=== PATIENT | male | born 1960 | race African-American/Black ===

== ENCOUNTER 2020-04-11 18:40 | Emergency (ER) | payer OTHER, SELFPAY ==
--- NOTE | ~2020-04-11 | CT_ITS ---
EXAMINATION: CTA LE RT EXAM DATE: 04/11/2020 21:12 INDICATION: Severe leg pain, well perfused TECHNIQUE: Spiral CTA was performed of the right lower extremity Axial, coronal and sagittal images were reviewed. The dose-length product (DLP) for this examination was 395.22 mGy-cm. Maximum intens ity projection 3-D reconstructions of the arteries were created by the technologist on dedicated wor kstation. The exposure was tailored according to patient size (auto mA exposure control), and itera tive reconstruction (ASIR) was used as additional dose reduction technique. There is no prior study for comparison. FINDINGS: Images of the common femoral artery at the inguinal canal demonstrate mild to moderate scat tered arteriosclerotic disease. There is mild popliteal arterial sclerotic disease. There is 3 vessel runoff to the ankle. No evidence of right lower extremity venous thrombosis. No right knee joint eff usion. There is nonspecific subcutaneous swelling of the calf, ankle and foot. No abscess. There is m ottled appearance to the right tarsal and metatarsal bases without discrete erosions. Could be disuse osteopenia, is patient Global? No inguinal lymphadenopathy. IMPRESSION: 1. Right calf, ankle and foot subcutaneous edema. 2. Scattered arterial sclerosis but 3 vessel runoff. No evidence of venous thrombus. 3. Mottled tarsal bone density. Disuse osteopenia? Reviewed, dictated and finalized at location A. ENGINEER IMPRESSION: 1. Right calf, ankle and foot subcutaneous edema. 2. Scattered arterial sclerosis but 3 vessel runoff. No evidence of venous thr ombus. 3. Mottled tarsal bone density. Disuse osteopenia?
--- NOTE | ~2020-04-11 | XR_ITS ---
EXAMINATION: XR chest 1V portable EXAM DATE: 04/11/2020 21:32 INDICATION: Transient alteration of awareness. History of hypertension. TECHNIQUE: Portable AP frontal chest x-ray was obtained. There is no prior study for comparison. FINDINGS: The lungs are clear. There are no pleural effusions. Cardiac silhouette is prominent but magnified on this AP technique. There is no pneumothorax suspected. The bones and soft tissues are unremarkable. There is aortic arteriosclerosis. IMPRESSION: No acute cardiopulmonary findings. Reviewed, dictated and finalized at location A. NSED MASSAGE PRACTITIONER
--- NOTE | ~2020-04-11 | CT_ITS ---
EXAMINATION: CT abdomen pelvis w con EXAM DATE: 04/11/2020 21:11 INDICATION: Abdominal pain, g tube pain. TECHNIQUE: Spiral CT of the abdomen and pelvis was performed following intravenous injection of 100 m L Omnipaque 350. Axial, coronal and sagittal images were reviewed. The dose-length product (DLP) fo r this examination was 313.28 mGy-cm. The exposure was tailored according to patient size (auto mA e xposure control), and iterative reconstruction (ASIR) was used as additional dose reduction technique . There is no prior study for comparison. FINDINGS: The liver, spleen, adrenal glands and pancreas are unremarkable. Gallbladder is unremarkab le. No biliary obstruction. Portal and splenic veins are patent. Kidneys enhance symmetrically. T here is no hydronephrosis. The prostate is unremarkable. The bladder is unremarkable. There is no retroperitoneal or pelvic lymphadenopathy. There is moderate aortic arteriosclerotic disease. Sign ificant bilateral iliac arterial sclerosis, difficult to ascertain the amount of stenosis but there i s likely at least moderate narrowing. The appendix is normal. Gastrostomy tube is in place. There is expected amount of colonic stool. No free intraperitoneal gas. The heart is normal in size. There are no pericardial or pleural effu sions. The lung bases are unremarkable. The bones are unremarkable. IMPRESSION: 1. No acute intra-abdominal findings. 2. Significant bilateral common iliac arterial sclerosis, likely at least moderate stenosis. Reviewed, dictated and finalized at location A. CARE SPECIALIST IMPRESSION: 1. No acute intra-abdominal findings. 2. Significant bilateral common iliac arterial sclerosis, likely at least mode rate stenosis.
--- NOTE | ~2020-04-11 | CT_ITS ---
EXAMINATION: CT brain wo con EXAM DATE: 04/11/2020 21:12 INDICATION: Altered mental status. TECHNIQUE: Spiral CT of the head was performed without contrast. Axial, coronal and sagittal images were reviewed. The dose-length product (DLP) for this examination was 605.33 mGy-cm. The exposure w as tailored according to patient size, and iterative reconstruction (ASIR) was used as additional dos e reduction technique. There is no prior study for comparison. FINDINGS: There is no acute intraparenchymal hemorrhage. No evidence of intraparenchymal brain mass lesion. No evidence of acute infarction. Please note that initial head CT has limited sensitivity f or small or acute infarctions. There is old left basal ganglia, external capsular infarction. There is punctate old right caudate head lacunar infarction. There is mild periventricular and subcortical hypodensity, nonspecific but probably related to small vessel ischemic disease. There is mild prom inence of the sulci and ventricles related to cerebral atrophy. There is intracranial carotid arter iosclerosis. There are no extra-axial collections. There is no mass effect or midline shift. The o rbits are unremarkable. Soft tissue is unremarkable. The visualized sinuses and mastoid air cells a re well aerated. IMPRESSION: 1. No acute intracranial findings. 2. Chronic age related findings. 3. Old infarctions. Reviewed, dictated and finalized at location A. ER CONSULTANT
[2020-04-11 18:41] VITALS: BP 189/77; PULSE 82; RESP 17; TEMP 37.1; O2SAT 100
--- NOTE | 2020-04-11 18:53 | ECG_ITS ---
Measurements Intervals [place] Rate: 79 P: 78 [place]: 221 QRS: 60 QRSD: 114 T: 77 QT: 399 QTc: 460 Interpretive Statements SINUS RHYTHM WITH FIRST DEGREE AV BLOCK POSSIBLE LEFT ATRIAL ENLARGEMENT INCOMPLETE RIGHT BUNDLE BRANCH BLOCK BORDERLINE ST-T WAVE ABNORMALITY- LAT/HIGH LAT LEADS BASELINE ARTIFACT- I, II, III, AVR, V1-V3, V5-V6 ABNORMAL ECG Electronically Signed On 04-11-2020 20:33:19 CYLINDER SANDER OPERATOR by Suresh Quan D.O.
--- NOTE | 2020-04-11 18:57 | ED.ABDPAIN ---
HPI - Abdominal Pain General Chief Complaint: Abdominal Pain <Eveline Guerra MD - Last Filed: 04/11/20 21:38> Stated Complaint: G TUBE PAIN, LEG PAIN <Eveline Guerra MD - Last Filed: 04/11/20 21:38> Time Seen by Provider: 04/11/20 18:57 <Eveline Guerra MD - Last Filed: 04/11/20 21:38> Source: patient and EMS <Eveline Guerra MD - Last Filed: 04/11/20 21:38> Mode of arrival: EMS <Eveline Guerra MD - Last Filed: 04/11/20 21:38> Limitations: dementia <Eveline Guerra MD - Last Filed: 04/11/20 21:38> History of Present Illness HPI narrative: Patient is a 60-year-old male with a history of hypertension, 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 Patient has a history of dementia as well as stroke deficits making it difficult to obtain a full history however he is alert and oriented to person and can identify he is at the hospital. He reports abdominal pain throughout his entire abdomen and at his G-tube site. He also is reporting sharp right sided leg pain. He denies vomiting. Per EMS, staff at the facility, [facility], at which the patient resides had stated he was complaining of chest pain and shortness of breath, but patient currently denies any chest pain and denies shortness of breath. No known recent falls or injuries. Apparently, he was recently hospitalized at [facility]. <Eveline Guerra MD - Last Filed: 04/11/20 21:38> Related Data Allergies/Adverse Reactions: Allergies Allergy/AdvReac Type Severity Reaction Status Date / Time No Known Allergies Allergy Verified 04/11/20 18:57 <Eveline Guerra MD - Last Filed: 04/11/20 21:38> Review of Systems Review of Systems: Narrative: CONSTITUTIONAL: Denies fever CARDIOVASCULAR: Denies chest pain RESPIRATORY: Denies cough or dyspnea. GASTROINTESTINAL: Reports abdominal pain SKIN: Denies rash or itching. MUSCULOSKELETAL: Denies back pain, reports right leg pain NEUROLOGIC: Denies headache <Eveline Guerra MD - Last Filed: 04/11/20 21:38> [facility] Past Medical History Medical History: Medical History CVA (cerebral vascular accident) Dementia Hypertension Right sided weakness <Eveline Guerra MD - Last Filed: 04/11/20 21:38> Social History Social History: Social History (Updated 04/11/20 @ 19:12 by Eveline Guerra MD) Smoking status: Former smoker Alcohol intake: former Substance use: unknown Living arrangements: correction Gender identity (if verbalized by the patient): Male <Eveline Guerra MD - Last Filed: 04/11/20 21:38> Exam Narrative: Exam Narrative: GENERAL: Awake, alert, talkative HEAD: Normocephalic, atraumatic. EYES: PERRLA and EOMI. ENT: Nares clear, no rhinorrhea or epistaxis. Mucous membranes moist. NECK: Supple. CHEST: No respiratory distress, breathing even and non labored HEART: Regular rate, sinus rhythm ABDOMEN:Non distended, tender throughout with guarding present, G-tube in place, no surrounding erythema or excoriation : No scrotal edema, tenderness. No inguinal lymphadenopathy. Penis is unremarkable without lesions. EXTREMITIES: No edema in the bilateral lower extremities. Bilateral lower extremities are warm and well-perfused. DP pulses are 2+ bilaterally. Compartments are soft bilaterally. No ecchymoses, rashes or deformities. SKIN: Dry skin on all extremities NEURO: Right upper extremity and right lower extremity weakness, consistent with baseline CVA. No spontaneous movement right upper extremity. Patient is able to lift his right lower extremity off the bed and resist gravity, strength 5/5. Intact distal sensation bilaterally. Alert and oriented to person and place, not to time. <Eveline Guerra MD - Last Filed: 04/11/20 21:38> Course Course Emergency
[2020-04-11 19:10] LABS: Add Urine Microscopic? YES; Appearance Urine Clear (Clear); Bacteria Urine 4+ /hpf; Bilirubin Urine Negative (Negative); Blood Urine Negative (Negative); Color Urine Yellow (Yellow); Glucose Urine UA Negative (Negative); Ketones Urine Negative (Negative); Leukocyte Esterase Ur 1+ LEU/UL (Negative); Mucus Urine Rare /lpf; Nitrate Urine Negative (Negative); Protein Urine Negative (Negative); RBC Urine 0-2 /hpf (0-2); Specific Grav Ur 1.016 (1.001-1.035); Squamous Epithelial Cell Urine Rare /hpf (Few); Urobilinogen Urine Negative mg/dL (<2.0)
[2020-04-11] MEDS: MORPHINE SULFATE (*CRX) 4 MG/ML INJ IV PUSH (19:20)
[2020-04-11] MEDS: ONDANSETRON INJ 4 MG/2 ML VIAL IV PUSH (19:20)
[2020-04-11] MEDS: SODIUM CHLORIDE 0.9% IV 1,000 ML 999 ML IV CONT (19:24)
[2020-04-11 19:35] LABS: Basophils Percent Auto 0.6 % (0.2-1.2); Eosinophils Absolute Auto 0.3 K/mm3 (0-0.3); Eosinophils Percent Auto 7.2 % (0-4.4); Hemoglobin 12.2 g/dL (14.0-18.0); Immature Granulocyte Absolute 0.01 K/mm3 (0.00-0.031); Immature Granulocyte Percent A 0.2 % (0-0.5); Lymphocytes Absolute Auto 1.85 K/mm3 (0.9-3.2); Lymphocytes Percent Auto 39.4 % (18.3-44.2); Mean Corpuscular Hemoglobin 32.5 pg (26-34); Mean Corpuscular Volume 98.7 fl (80-100); Mean Platelet Volume 9.2 fl (7.4-10.4); Monocytes Absolute Auto 0.4 K/mm3 (0.1-0.6); Monocytes Percent Auto 8.3 % (2.6-8.5); Neutrophils Absolute Auto 2.1 K/mm3 (1.3-6.7); Neutrophils Percent Auto 44.3 % (45.5-73.1); Platelet Count Result 395 k/mm3 (150-375); Red Blood Count 3.75 M/mm3 (4.6-6.20); Red Cell Distribution Width 13.4 % (11.5-14.5); White Blood Count 4.7 K/mm3 (4.5-10.0)
[2020-04-11 19:44] LABS: Prothrombin Time 14.1 Seconds (11.1-14.7)
[2020-04-11 19:45] LABS: Partial Thromboplastin Time 29.2 SECONDS (22.3-36.8)
[2020-04-11 19:46] LABS: Alanine Aminotransferase 29 U/L (4-50); Albumin Level 4.5 g/dL (3.5-5.1); Alkaline Phosphatase 42 U/L (38-126); Anion Gap 7 mmol/L (8-16); Aspartate Amino Transferase 30 U/L (17-59); Bilirubin,Total 0.4 mg/dL (0.2-1.3); Blood Urea Nitrogen 14 mg/dL (9-20); Calcium 9.8 mg/dL (8.4-10.2); Carbon Dioxide 28 mmol/L (22-30); Chloride 107 mmol/L (98-107); Estimated CRCL calculation 82 ml/min; Estimated Glomerular Filt Rate > 60; Glucose 93 mg/dL (75-110); Lipase 80 U/L (23-300); Potassium 4.2 mmol/L (3.4-5.0); Sodium 142 mmol/L (137-145)
[2020-04-11 19:47] LABS: Lactic Acid Reflex 1.1 mmol/L (0.7-2.1)
[2020-04-11 19:58] LABS: Troponin I < 0.012 ng/mL (0.000-0.034)
[2020-04-11 20:04] LABS: Creatine Kinase 67 U/L (55-170)
[2020-04-11 21:39] VITALS: BP 188/83; PULSE 87; RESP 16; O2SAT 100
--- NOTE | 2020-04-11 23:12 | PC.NURSE ---
called [facility] to request transport. ETA [id number]
[2020-04-12 00:08] VITALS: BP 199/75; PULSE 80; RESP 13; O2SAT 99
== END 2020-04-12 00:10 ==
PROVIDERS: Emergency Medicine Emergency Medical Services; Emergency Provider Emergency Medicine
DX: N39.0 Urinary tract infection, site not specified (principal); M79.604 Pain in right leg; R33.9 Retention of urine, unspecified; I10 Essential (primary) hypertension; F03.90 Unspecified dementia, unspecified severity, without behavioral disturbance, psychotic disturbance, mood disturbance, and anxiety; I69.951 Hemiplegia and hemiparesis following unspecified cerebrovascular disease affecting right dominant side; Z93.1 Gastrostomy status; Z87.891 Personal history of nicotine dependence; I44.0 Atrioventricular block, first degree; R94.31 Abnormal electrocardiogram [ECG] [EKG]; I45.10 Unspecified right bundle-branch block
CPT/HCPCS: 36415; 70450; 71045; 73706; 74177; 80053; 81001; 82550; 83605; 83690; 84484; 85025; 85610; 85730; 87040; 87077; 87086; 87088; 87186; 93005; 96361; 96374; 96375; 99284; J2270; J2405; J7030; Q9967

== ENCOUNTER 2020-08-05 16:11 | Emergency (ER) | payer OTHER, SELFPAY ==
--- NOTE | ~2020-08-05 | CT_ITS ---
EXAMINATION: CT cervical spine wo con DATE: 08/05/2020 16:49 INDICATION: Neck pain post fall TECHNIQUE: Computed tomography (CT) of the cervical spine was performed without intravenous contrast. Automated exposure control and iterative reconstruction technique were employed. The dose-length pro duct was 164.01 mGy-cm. COMPARISON: None FINDINGS: Alignment is normal. Vertebral body heights are normal. Moderate disc height loss with bridging osteo phytes at C4-C6 and fusion across the uncovertebral joints at C5-C6. Small Schmorl's node along the l eft superior endplate of T7. No acute fracture. Disc bulges resulting in minimal to mild central umm l stenosis throughout the cervical spine most prominent at C2-C3 and C3-C4. Moderate facet osteoarthr itis on the left at C2-C3. Mild facet osteoarthritis throughout the remainder of the bilateral cervic al facet joints. Severe uncovertebral osteoarthritis bilaterally at C4-C5 and mild uncovertebral oste oarthritis throughout the remainder of the cervical spine. There is results in mild neural foraminal stenosis at several levels on both the left and right side of the cervical spine. Atherosclerotic jade cifications at the bilateral common carotid arteries and carotid bulbs. Cervical soft tissues are oth erwise unremarkable. Mild emphysema at the apices of lungs with mild right apical pleural-parenchymal scarring. IMPRESSION: 1. No acute osseous abnormality. 2. Moderate cervical spondylosis and bridging endplate osteophytes at C4-C6. Reviewed, dictated and finalized at location A.
--- NOTE | ~2020-08-05 | CT_ITS ---
EXAMINATION: CT brain wo con DATE: 08/05/2020 16:49 INDICATION: Confusion post fall TECHNIQUE: Computed tomography (CT) of the head was performed without intravenous contrast. Sagittal and coronal reconstructions were performed. The mA was adjusted according to patient size. Iterative reconstruction technique was employed. The dose-length product was 605.33 mGy-cm. COMPARISON: head CT dated 04/11/2020 FINDINGS: No fracture. Unchanged region of encephalomalacia involving the left basal ganglia and external capsu le consistent with old infarct. Additional small old lacunar infarct at the head of the right caudate nucleus. No acute intracranial hemorrhage, acute infarction or abnormal extra axial fluid collection . There is mild scattered white matter hypoattenuation consistent with chronic small vessel ischemic disease. Symmetric prominence of the sulci and ventricles consistent with mild age-appropriate diffus e cerebral volume loss. No mass/mass effect. Intracranial calcified cerebral atherosclerosis is noted . The orbits, paranasal sinuses and mastoid air cells are normal. IMPRESSION: 1. No fracture or acute intracranial process. 2. Old infarct involving the left basal ganglia and external capsule and additional small old lacunar infarct at the head of the right caudate nucleus. 3. Age-related changes including mild diffuse volume loss and mild scattered white matter hypoattenua tion consistent with chronic small vessel ischemic disease. Reviewed, dictated and finalized at location A. IMPRESSION: 1. No fracture or acute intracranial process. 2. Old infarct involving the left basal ganglia and external capsule and additi onal small old lacunar infarct at the head of the right caudate nucleus. 3. Age-related changes including mild diffuse volume loss and mild scattered wh ite matter hypoattenuation consistent with chronic small vessel ischemic diseas e.
--- NOTE | ~2020-08-05 | XR_ITS ---
EXAMINATION: XR chest 1V DATE: 08/05/2020 17:00 INDICATION: Altered mental status TECHNIQUE: frontal view of the chest was obtained. COMPARISON: Chest radiograph dated 04/11/2020 FINDINGS: Hyperexpansion of lungs with scattered increased lucency and architectural distortion consistent with at least mild emphysema. There is mild right apical pleural-parenchymal scarring. No other airspace opacities, pulmonary edema, pleural effusion or pneumothorax. Cardiomegaly. Mild thoracic dextroscoli osis. IMPRESSION: 1. Emphysema with mild right apical pleural-parenchymal scarring. 2. Cardiomegaly. Reviewed, dictated and finalized at location A.
--- NOTE | ~2020-08-05 | XR_ITS ---
EXAMINATION: XR hip RT 2V w AP pelvis DATE: 08/05/2020 17:00 INDICATION: Right leg pain post fall TECHNIQUE: Anteroposterior view of the pelvis and anteroposterior and frog-leg lateral views of the r ight hip were obtained. COMPARISON: CT abdomen and pelvis dated 04/11/2020 FINDINGS: Alignment is normal. No fracture. Mild bilateral hip osteoarthritis. There is ankylosis across the ce phalad aspect of the bilateral sacroiliac joints. Heterotopic ossification projecting over the left l ower paraspinal musculature. Atherosclerotic calcific a cyst at the abdominal aorta and bilateral renee ac and right common femoral arteries. IMPRESSION: 1. Mild bilateral hip osteoarthritis. No acute osseous abnormality. Reviewed, dictated and finalized at location A.
[2020-08-05 16:02] VITALS: BP 120/55; PULSE 62; RESP 18; TEMP 36.6; O2SAT 97
--- NOTE | 2020-08-05 16:18 | ECG_ITS ---
Measurements Intervals [place] Rate: 60 P: 84 [place]: 219 QRS: -7 QRSD: 110 T: 73 QT: 452 QTc: 454 Interpretive Statements SINUS RHYTHM WITH FIRST DEGREE AV BLOCK INCOMPLETE RIGHT BUNDLE BRANCH BLOCK BASELINE ARTIFACT- I, III, AVR, AVL, AVF, V1-V6 ABNORMAL ECG Electronically Signed On 08-06-2020 7:35:43 CDT by Suresh Quan D.O.
--- NOTE | 2020-08-05 16:21 | ED.GENADULT ---
HPI - General Adult General Chief complaint: Fall Stated complaint: fall/right side pain Time Seen by Provider: 08/05/20 16:16 Source: patient History of Present Illness HPI narrative: Patient is a 61 y/o male sent from [place] for a fall. Apparently the fall was unwitnessed. Patient does not know what happened. He was thought be confused and sent here for evaluation. He complains of some right sided pain. He is not sure how long the pain has been, possible for a while. He states that shower helps with his pain. Related Data Home Medications Medication Instructions Recorded Confirmed amlodipine 10 mg PO DAILY 08/05/20 carvedilol 25 mg PO BID 08/05/20 clonidine HCl 0.3 mg PO TID 08/05/20 escitalopram oxalate 10 mg PO DAILY 08/05/20 ferrous sulfate 325 mg PO DAILY 08/05/20 folic acid 1 mg PO DAILY 08/05/20 hydralazine 25 mg PO TID 08/05/20 lisinopril 40 mg PO DAILY 08/05/20 mecobalamin (vitamin B12) 1,000 mcg PO DAILY 08/05/20 cfcygbmy-ddu-rrwo-vitamin K tablet PO 08/05/20 [Adults' Daily Formula] polyethylene glycol ea MISCELLANEOUS 08/05/20 sennosides-docusate sodium 1 tab-cap PO HS 08/05/20 [Senexon-S] sodium chloride 1,000 mg PO TID 08/05/20 tamsulosin 0.4 mg PO DAILY 08/05/20 thiamine HCl (vitamin B1) 100 mg PO DAILY 08/05/20 Allergies Allergy/AdvReac Type Severity Reaction Status Date / Time No Known Allergies Allergy Verified 08/05/20 16:19 Review of Systems Review of Systems: ROS unobtainable: Yes unobtainable due to mental status PMFSH Past Medical History Medical History CVA (cerebral vascular accident) Dementia Hypertension Right sided weakness Social History Social History Smoking status: Former smoker Alcohol intake: former Substance use: unknown Gender identity (if verbalized by the patient): Male Exam Const: General: no acute distress and well developed Orientation/consciousness: oriented to person HENMT: Head: normocephalic Ears: external ears normal General nose exam: Normal external nose present Eyes: General: appearance normal, both eyes and all related structures Conjunctivae: conjunctivae normal Neck: Neck: normal visual inspection and full ROM Chest: Chest palpation & inspection: normal inspection of the chest and no tenderness Resp: Effort & Inspection: normal respiratory effort Auscultation: clear to auscultation bilaterally Cardio: Rate: regular rate Rhythm: regular rhythm GI: GI Palp: No abdominal tenderness and Yes Soft to palpation Skin: General skin exam: normal color and turgor normal Neuro: General: oriented to person and confusion Motor exam (neuro): Other motor observations present (right hemiparesis, likely due to old stroke) Extrem: General: normal to inspection, full ROM and no pedal edema Right upper extremity: ROM limited (right arm contracted) Psych: Appearance: grossly normal Mental Status: mental status grossly normal Affect: normal affect Course Vital Signs Vital signs: Vital Signs Temperature 36.6 C 08/05/20 16:02 Pulse Rate 62 08/05/20 16:02 Respiratory Rate 18 08/05/20 16:02 Blood Pressure 120/55 L 08/05/20 16:02 Pulse Oximetry 97 08/05/20 16:02 Temperature 36.6 C 08/05/20 16:02 Pulse Rate 57 L 08/05/20 18:08 Respiratory Rate 20 08/05/20 18:08 Blood Pressure 136/60 08/05/20 18:08 Pulse Oximetry 94 08/05/20 18:08 Medical Decision Making Vital Signs Vital Signs: Vital Signs Temperature 36.6 C 08/05/20 16:02 Pulse Rate 62 08/05/20 16:02 Respiratory Rate 18 08/05/20 16:02 Blood Pressure 120/55 L 08/05/20 16:02 Pulse Oximetry 97 08/05/20 16:02 Temperature 36.6 C 08/05/20 16:02 Pulse Rate 57 L 08/05/20 18:08 Respiratory Rate 20 08/05/20 18:08 Blood Pressure 136/60 08/05/20 18:08 Pulse Oximetry 94 08/05/20 18:08 Lab Data Result d
--- NOTE | 2020-08-05 16:26 | ED.GENADULT ---
HPI - General Adult General Chief complaint: Fall Stated complaint: fall/right side pain Time Seen by Provider: 08/05/20 16:16 Source: patient Related Data Home Medications Medication Instructions Recorded Confirmed amlodipine 10 mg PO DAILY 08/05/20 carvedilol 25 mg PO BID 08/05/20 clonidine HCl 0.3 mg PO TID 08/05/20 escitalopram oxalate 10 mg PO DAILY 08/05/20 ferrous sulfate 325 mg PO DAILY 08/05/20 folic acid 1 mg PO DAILY 08/05/20 hydralazine 25 mg PO TID 08/05/20 lisinopril 40 mg PO DAILY 08/05/20 mecobalamin (vitamin B12) 1,000 mcg PO DAILY 08/05/20 oaevpeld-bte-tsqw-vitamin K tablet PO 08/05/20 [Adults' Daily Formula] polyethylene glycol ea MISCELLANEOUS 08/05/20 sennosides-docusate sodium 1 tab-cap PO HS 08/05/20 [Senexon-S] sodium chloride 1,000 mg PO TID 08/05/20 tamsulosin 0.4 mg PO DAILY 08/05/20 thiamine HCl (vitamin B1) 100 mg PO DAILY 08/05/20 Allergies Allergy/AdvReac Type Severity Reaction Status Date / Time No Known Allergies Allergy Verified 08/05/20 16:19 [facility] Past Medical History Medical History CVA (cerebral vascular accident) Dementia Hypertension Right sided weakness Social History Social History Smoking status: Former smoker Alcohol intake: former Substance use: unknown Gender identity (if verbalized by the patient): Male Course Vital Signs Vital signs: Vital Signs Temperature 36.6 C 08/05/20 16:02 Pulse Rate 62 08/05/20 16:02 Respiratory Rate 18 08/05/20 16:02 Blood Pressure 120/55 L 08/05/20 16:02 Pulse Oximetry 97 08/05/20 16:02 Temperature 36.6 C 08/05/20 16:02 Pulse Rate 62 08/05/20 16:02 Respiratory Rate 18 08/05/20 16:02 Blood Pressure 120/55 L 08/05/20 16:02 Pulse Oximetry 97 08/05/20 16:02 Medical Decision Making Vital Signs Vital Signs: Vital Signs Temperature 36.6 C 08/05/20 16:02 Pulse Rate 62 08/05/20 16:02 Respiratory Rate 18 08/05/20 16:02 Blood Pressure 120/55 L 08/05/20 16:02 Pulse Oximetry 97 08/05/20 16:02 Temperature 36.6 C 08/05/20 16:02 Pulse Rate 62 08/05/20 16:02 Respiratory Rate 18 08/05/20 16:02 Blood Pressure 120/55 L 08/05/20 16:02 Pulse Oximetry 97 08/05/20 16:02 ECG Data EKG #1: Attestation: I personally reviewed and interpreted this ECG as follows: ECG completion date: 08/05/20 ECG completion time: 16:23 EKG Interpretation: normal rate, sinus rhythm, no ectopy and NL axis Discharge Plan Discharge Prescriptions: No Action carvedilol 25 mg Tablet 25 mg PO BID RF: 0 sennosides-docusate sodium [Senexon-S] 8.6-50 mg Tablet 1 tab-cap PO HS RF: 0 clonidine HCl 0.3 mg Tablet 0.3 mg PO TID RF: 0 sodium chloride 1 gram Tablet 1,000 mg PO TID RF: 0 thiamine HCl (vitamin B1) 100 mg Tablet 100 mg PO DAILY RF: 0 hydralazine 25 mg Tablet 25 mg PO TID RF: 0 tamsulosin 0.4 mg Capsule 0.4 mg PO DAILY RF: 0 amlodipine 10 mg Tablet 10 mg PO DAILY RF: 0 ferrous sulfate 325 mg (65 mg iron) Tablet 325 mg PO DAILY RF: 0 folic acid 1 mg Tablet 1 mg PO DAILY RF: 0 lisinopril 40 mg Tablet 40 mg PO DAILY RF: 0 polyethylene glycol Powder MISCELLANEOUS RF: 0 escitalopram oxalate 10 mg Tablet 10 mg PO DAILY RF: 0 Adults' Daily Formula 18 mg iron-25 mcg Tablet PO RF: 0 mecobalamin (vitamin B12) 1,000 mcg Tablet,Chewable 1,000 mcg PO DAILY RF: 0
[2020-08-05 16:34] LABS: Basophils Percent Auto 0.5 % (0.2-1.2); Eosinophils Absolute Auto 0.3 K/mm3 (0-0.3); Hematocrit 33.9 % (42.0-52.0); Hemoglobin 11.1 g/dL (14.0-18.0); Immature Granulocyte Absolute 0.02 K/mm3 (0.00-0.031); Immature Granulocyte Percent A 0.3 % (0-0.5); Lymphocytes Absolute Auto 1.37 K/mm3 (0.9-3.2); Lymphocytes Percent Auto 22.8 % (18.3-44.2); Mean Corpuscular HGB Conc 32.7 g/dl (32-36); Mean Corpuscular Hemoglobin 32.2 pg (26-34); Mean Corpuscular Volume 98.3 fl (80-100); Mean Platelet Volume 9.2 fl (7.4-10.4); Monocytes Absolute Auto 0.3 K/mm3 (0.1-0.6); Monocytes Percent Auto 5.3 % (2.6-8.5); Neutrophils Percent Auto 66.1 % (45.5-73.1); Platelet Count Result 318 k/mm3 (150-375); Red Blood Count 3.45 M/mm3 (4.6-6.20); Red Cell Distribution Width 13.2 % (11.5-14.5)
[2020-08-05 16:43] LABS: Alanine Aminotransferase 28 U/L (4-50); Alkaline Phosphatase 46 U/L (38-126); Anion Gap 7 mmol/L (8-16); Aspartate Amino Transferase 34 U/L (17-59); Bilirubin,Total 0.2 mg/dL (0.2-1.3); Blood Urea Nitrogen 16 mg/dL (9-20); Carbon Dioxide 26 mmol/L (22-30); Chloride 110 mmol/L (98-107); Estimated CRCL calculation 71 ml/min; Estimated Glomerular Filt Rate > 60; Glucose 103 mg/dL (75-110); Potassium 4.1 mmol/L (3.4-5.0); Sodium 143 mmol/L (137-145)
[2020-08-05 17:30] VITALS: BP 116/60; PULSE 59; RESP 16; O2SAT 94
[2020-08-05 18:08] VITALS: BP 136/60; PULSE 57; RESP 20; O2SAT 94
--- NOTE | 2020-08-05 19:06 | PC.NURSE ---
Patient transferred to [facility] at this time via [facility].
== END 2020-08-05 19:07 ==
PROVIDERS: Emergency Provider Emergency Medicine
DX: R41.82 Altered mental status, unspecified (principal); F03.90 Unspecified dementia, unspecified severity, without behavioral disturbance, psychotic disturbance, mood disturbance, and anxiety; I10 Essential (primary) hypertension; Z86.73 Personal history of transient ischemic attack (TIA), and cerebral infarction without residual deficits; Z87.891 Personal history of nicotine dependence; W19.XXXA Unspecified fall, initial encounter; I44.0 Atrioventricular block, first degree; I45.10 Unspecified right bundle-branch block; I51.7 Cardiomegaly; J43.9 Emphysema, unspecified; M47.812 Spondylosis without myelopathy or radiculopathy, cervical region; M16.0 Bilateral primary osteoarthritis of hip
CPT/HCPCS: 36415; 70450; 71045; 72125; 73502; 80053; 85025; 93005; 99284

== ENCOUNTER 2021-05-07 10:17 | Outpatient (CLI) | payer OTHER, SELFPAY ==
--- NOTE | 2021-05-07 11:00 | NEURO_ITS ---
Impression: # Complains of right sided weakness and unable to move right leg. Only nerve conductions study ordered. # Normal nerve conduction study including right peroneal and posterior tibial nerves. # Normal F-waves. # Needle/EMG exam not requested. # Clinical correlation recommended.Higher involvement likely. Nerve Conduction Studies Anti Sensory Summary Table Stim Site NR Peak (ms) P-T Amp (?V) Site1 Site2 Delta-P (ms) Dist (cm) Drew (m/s) Right Sup Fibular Anti Sensory (Ant Lat Mall) 14 cm 3.0 15.6 14 cm Ant Lat Mall 3.0 16.0 53 Right Sural Anti Sensory (Lat Mall) Calf 3.8 18.5 Calf Lat Mall 3.8 16.0 42 Motor Summary Table Stim Site NR Onset (ms) O-P Amp (mV) Site1 Site2 Delta-0 (ms) Dist (cm) Drew (m/s) Right Peroneal Motor (Vastus Med) Ankle 4.8 1.3 Popit Ankle 9.0 39.0 43 Popit 13.8 1.2 Right Tibial Motor (Abd Panchal Brev) Ankle 4.5 1.6 Knee Ankle 10.4 43.0 41 Knee 14.9 0.8 F Wave Studies NR F-Lat (ms) L-R F-Lat (ms) Right Peroneal (Mrkrs) (EDB) 54.95 Right Tibial (Mrkrs) (Abd Hallucis) 54.23 MTDD
== END 2021-05-07 10:18 | disposition home or self-care (01) ==
DX: R20.0 Anesthesia of skin (principal)
CPT/HCPCS: 95908

== ENCOUNTER 2023-02-08 13:52 | Emergency (ER) | payer MEDICARE, MEDICAID, SELFPAY ==
--- NOTE | ~2023-02-08 | CT_ITS ---
EXAMINATION: CT brain wo con DATE: 02/08/2023 19:19 INDICATION: Head injury post fall TECHNIQUE: Computed tomography (CT) of the head was performed without intravenous contrast. Sagittal and coronal reconstructions were performed. The mA was adjusted according to patient size. Iterative reconstruction technique was employed. The dose-length product was 605.33 mGy-cm. COMPARISON: head CT dated 08/05/2020 FINDINGS: No fracture. Unchanged region of encephalomalacia extending between the left basal ganglia and left i nsula consistent with old infarct. Additional small old lacunar infarcts in the right basal ganglia i nvolving the lentiform and caudate nuclei. No acute intracranial hemorrhage, acute infarction or abno rmal extra axial fluid collection. There is mild scattered white matter hypoattenuation consistent wi th chronic small vessel ischemic disease. Symmetric prominence of the sulci and ventricles consistent with mild age-appropriate diffuse cerebral volume loss. No mass/mass effect. Intracranial calcified cerebral atherosclerosis is noted. The orbits and mastoid air cells are normal. Mild mucosal thickening the le ft maxillary sinus. IMPRESSION: 1. No fracture or acute intracranial process. 2. Stable appearance of old infarcts the largest extending from the left abdomen related to the left insula with 3 smaller old lacunar infarcts at the right basal ganglia. 3. Age-related changes including mild diffuse volume loss and mild scattered white matter hypoattenuation consistent with chronic small vessel ischemic disease. Reviewed, dictated and finalized at location A. LE DISC JOCKEY IMPRESSION: 1. No fracture or acute intracranial process. 2. Stable appearance of old infarcts the largest extending from the left abdome n related to the left insula with 3 smaller old lacunar infarcts at the right b shelby ganglia. 3. Age-related changes including mild diffuse volume loss and mild scattered wh ite matter hypoattenuation consistent with chronic small vessel ischemic disease.
--- NOTE | ~2023-02-08 | XR_ITS ---
EXAMINATION: XR humerus RT DATE: 02/08/2023 19:08 INDICATION: Right upper arm pain post fall TECHNIQUE: Internal and axillary rotated views of the right humerus were obtained. COMPARISON: None. FINDINGS: Line diffuse osteopenia. Bone alignment is normal. No fracture. The profiled joint spaces a ppear relatively preserved. Peripheral IV at the left wrist. Soft tissues are otherwise unremarkable. Visualized portion of the right lung are clear. IMPRESSION: 1. Diffuse osteopenia. No acute osseous abnormality. Reviewed, dictated and finalized at location A. STAYER
--- NOTE | ~2023-02-08 | CT_ITS ---
EXAMINATION: CT cervical spine wo con DATE: 02/08/2023 19:19 INDICATION: Head injury post fall TECHNIQUE: Computed tomography (CT) of the cervical spine was performed without intravenous contrast. Automated exposure control and iterative reconstruction technique were employed. The dose-length pro duct was 145.14 mGy-cm. COMPARISON: None FINDINGS: Straightening of the normal cervical lordosis. Anterior fusion at C4-C6. Chronic Schmorl's node along the left superior endplate of C7. Vertebral body heights are otherwise normal. No acute fracture. Di sc bulges resulting in mild central canal stenosis at C2-C3 and C3-C4. Moderate facet osteoarthritis on the left at C2-C3. Mild facet osteoarthritis throughout the remainder of the bilateral cervical fa cet joints. There is also bilateral mild uncovertebral osteoarthritis at the unfused cervical levels. Together this results in mild neural foraminal stenosis at several levels on both the left and right side of the cervical spine. There is also moderate neural foraminal stenosis on the left at T1-T2. A therosclerotic calcifications at the bilateral common carotid arteries and carotid bulbs. Cervical so ft tissues are otherwise unremarkable. Mild emphysema at the apices of lungs with mild right apical p leural-parenchymal scarring. IMPRESSION: 1. No acute osseous abnormality. 2. C4-C6 anterior spinal fusion with mild spondylosis throughout the remainder of the cervical spine. Reviewed, dictated and finalized at location A. CTOR DATABASE
[2023-02-08 14:11] VITALS: BP 132/61; PULSE 63; RESP 20; TEMP 36.4; O2SAT 97
[2023-02-08 18:03] VITALS: O2SAT 97
[2023-02-08 18:10] VITALS: BP 188/68; PULSE 62; RESP 18; O2SAT 97
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
[2023-02-08] MEDS: ACETAMINOPHEN 500 MG TABLET 1000 MG PO (19:23)
[2023-02-08 20:46] VITALS: BP 188/63; PULSE 62; RESP 14; O2SAT 98
[2023-02-08] MEDS: hydrALAZINE HCL 25 MG TABLET PO (21:14)
--- NOTE | 2023-02-08 21:19 | PC.NURSE ---
spoke to MARY Barrios at [facility] @0541 to give update and report. no further orders at this time.
[2023-02-08 22:45] VITALS: BP 181/66
== END 2023-02-08 22:47 ==
PROVIDERS: Emergency Provider Physician Assistant
DX: S09.90XA Unspecified injury of head, initial encounter (principal); M79.601 Pain in right arm; F03.90 Unspecified dementia, unspecified severity, without behavioral disturbance, psychotic disturbance, mood disturbance, and anxiety; I10 Essential (primary) hypertension; Z87.891 Personal history of nicotine dependence; W05.0XXA Fall from non-moving wheelchair, initial encounter; Y92.129 Unspecified place in nursing home as the place of occurrence of the external cause
CPT/HCPCS: 70450; 72125; 73060; 99284; A9270

== ENCOUNTER 2023-03-14 06:38 | Inpatient (IN) | payer MEDICARE, MEDICAID, SELFPAY ==
[2023-03-14] VITALS (33 sets, daily range): BP systolic 151–219; BP diastolic 61–100; PULSE 79–97; RESP 12–22; TEMP 36.4–37.6; O2SAT 91–99
--- NOTE | ~2023-03-14 | US_ITS ---
EXAMINATION: US venous doppler LE RT DATE: 03/14/2023 17:47 INDICATION: pain RLE with elevated d-dimer . TECHNIQUE: Grayscale images without and with compression and Doppler images of the right lower extrem ity veins were obtained. COMPARISON: None FINDINGS: The right common femoral vein, profunda (deep) femoral vein, femoral vein, popliteal vein, peroneal v ein, posterior tibial veins, gastrocnemius vein, and greater saphenous vein are patent. IMPRESSION: Patent right lower extremity veins. No evidence of deep venous thrombosis. Reviewed, dictated and finalized at location K. ERNESS GUIDE
--- NOTE | ~2023-03-14 | CT_ITS ---
EXAMINATION: CTA chest abdomen pelvis DATE: 03/14/2023 08:08 INDICATION: Right-sided chest and abdominal pain TECHNIQUE: Computed tomographic angiography (CTA) of the chest, abdomen, and pelvis was performed wit hout and with 100 mL Omnipque-350 intravenous contrast. Maximum intensity projection 3D-reconstructio ns of the aorta and other arteries were constructed by the technologist on a separate workstation. Th e dose-length product (DLP) was 597.90 mGy-cm. Automated exposure control and iterative reconstructio n technique were employed. COMPARISON: 04/11/2020 FINDINGS: CHEST CTA: No aneurysm or dissection of the thoracic aorta. There is mild calcified atherosclerosis of the aorta . There is severe emphysema in the lung apices. There is a 1.3 cm nodule in the medial aspect of the left lower lobe (image 99). Cardiomegaly is noted. No pleural effusion or pneumothorax. There is mild precarinal and bilateral hilar lymphadenopathy. There is mild thoracic spondylosis. ABDOMEN AND PELVIS CTA: No aneurysm or dissection of the abdominal aorta. The celiac axis, superior mesenteric artery, and in ferior mesenteric artery are normal at their origins. There are single renal arteries. There is moder ate atherosclerosis of the abdominal aorta. There is severe stenosis of the right common iliac artery at its origin. There is moderate stenosis of the right femoral artery. There is an area of severe st enosis in the proximal right superficial femoral artery. There is severe stenosis at the origins of t he internal iliac arteries. The liver, spleen, pancreas, gallbladder, and adrenal glands are normal. The kidneys are unremarkable . No pathologically enlarged abdominal or pelvic lymph nodes are identified. No free intraperitoneal gas or evidence of bowel obstruction. The appendix is normal. There is mild lumbar spondylosis. IMPRESSION: 1. No aneurysm or dissection of the aorta. 2. Areas of severe atherosclerotic disease as detailed above. 3. 1.3 cm nodule of the left lower lobe. Recommend follow-up CT in three months, PET/CT, or tissue sa mpling. 4. Mild mediastinal and hilar lymphadenopathy which may be reactive or metastatic disease. Reviewed, dictated and finalized at location F. [place] CLIENT SOLUTIONS ANALYST IMPRESSION: 1. No aneurysm or dissection of the aorta. 2. Areas of severe atherosclerotic disease as detailed above. 3. 1.3 cm nodule of the left lower lobe. Recommend follow-up CT in three months , PET/CT, or tissue sampling. 4. Mild mediastinal and hilar lymphadenopathy which may be reactive or metastat ic disease.
--- NOTE | ~2023-03-14 | US_ITS ---
EXAMINATION: US right upper quadrant DATE: 03/14/2023 17:47 INDICATION: RUQ pain TECHNIQUE: Multiple grayscale and Doppler ultrasound images of the right upper quadrant were obtained . COMPARISON: CT cap, same date. FINDINGS: Technically limited study. The visualized portions of the pancreas are normal. The liver is incompletely visualized, visualized portions are normal with normal echogenicity and echotexture. No surface nodularity. Normal hepatopetal flow in the main portal vein. The gallbladder is normal with no abnormal wall thickening, pericholecystic fluid or stones. The common bile duct measures 2 mm. The re was no sonographic Redman sign but this is confounded by the concurrent use of pain medication. IMPRESSION: Unremarkable right upper quadrant ultrasound findings. Reviewed, dictated and finalized at location K. SIOLOGIST
--- NOTE | ~2023-03-14 | XR_ITS ---
EXAMINATION: XR chest 1V portable INDICATION: Chest pain TECHNIQUE: Portable AP chest at 0737 hours COMPARISON: 08/05/2020 FINDINGS: There is scarring in the right lung apex. The lungs are free of acute opacities. No pleural effusion or pneumothorax. Cardiomegaly is noted. IMPRESSION: 1. No acute cardiopulmonary abnormality. Reviewed, dictated and finalized at location F. AGE MACHINE OPERATOR
--- NOTE | 2023-03-14 06:50 | ECG_ITS ---
Measurements Intervals [place] Rate: 85 P: 69 IA: 231 QRS: 14 QRSD: 110 T: 69 QT: 394 QTc: 469 Interpretive Statements SINUS RHYTHM WITH FIRST DEGREE AV BLOCK NONSPECIFIC T-WAVE ABNORMALITY Electronically Signed On 03-15-2023 10:18:59 CUSTOMER RELATIONS SPECIALIST by Darvin Prince M.D.
[2023-03-14] MEDS: ONDANSETRON INJ 4 MG/2 ML VIAL IV PUSH (07:10)
[2023-03-14] MEDS: MORPHINE SULFATE (*CRX) 4 MG/ML INJ IV PUSH (07:11)
[2023-03-14] MEDS: NITROGLYCERIN SL 0.4 MG TABLET SUBLINGUAL (07:27)
[2023-03-14 07:34] LABS: Basophils Percent Auto 0.4 % (0.2-1.2); Eosinophils Absolute Auto 0.1 K/mm3 (0-0.3); Eosinophils Percent Auto 1.8 % (0-4.4); Hematocrit 38.8 % (42.0-52.0); Hemoglobin 12.7 g/dL (14.0-18.0); Immature Granulocyte Absolute 0.02 K/mm3 (0.00-0.031); Immature Granulocyte Percent A 0.3 % (0-0.5); Lymphocytes Percent Auto 18.5 % (18.3-44.2); Mean Corpuscular HGB Conc 32.7 g/dl (32-36); Mean Corpuscular Hemoglobin 31.8 pg (26-34); Mean Corpuscular Volume 97.2 fl (80-100); Mean Platelet Volume 9.2 fl (7.4-10.4); Monocytes Absolute Auto 0.3 K/mm3 (0.1-0.6); Monocytes Percent Auto 4.8 % (2.6-8.5); Neutrophils Absolute Auto 5.2 K/mm3 (1.3-6.7); Neutrophils Percent Auto 74.2 % (45.5-73.1); Platelet Count Result 364 k/mm3 (150-375); Red Blood Count 3.99 M/mm3 (4.6-6.20); Red Cell Distribution Width 13.4 % (11.5-14.5)
[2023-03-14 07:43] LABS: Alanine Aminotransferase 15 U/L (6-50); Albumin Level 4.5 g/dL (3.5-5.1); Alkaline Phosphatase 62 U/L (38-126); Anion Gap 7 mmol/L (8-16); Aspartate Amino Transferase 28 U/L (17-59); Bilirubin,Total 0.7 mg/dL (0.2-1.3); Blood Urea Nitrogen 9 mg/dL (9-20); Calcium 9.4 mg/dL (8.4-10.2); Carbon Dioxide 27 mmol/L (22-30); Chloride 108 mmol/L (98-107); Estimated Glomerular Filt Rate > 60; Glucose 124 mg/dL (65-110); Potassium 3.7 mmol/L (3.4-5.0); Sodium 142 mmol/L (137-145)
[2023-03-14 07:52] LABS: INR 1.2; Prothrombin Time 15.4 Seconds (11.1-14.7)
[2023-03-14 07:54] LABS: Troponin I < 0.012 ng/mL (0.000-0.034)
--- NOTE | 2023-03-14 08:06 | ED.CHESTPAIN ---
HPI - Chest Pain General Chief Complaint: Chest Pain Stated Complaint: chest pain Time Seen by Provider: 03/14/23 06:54 History of Present Illness HPI narrative: This is a 63-year-old male, history of stroke and resulting right-sided deficit, brought in by EMS from his [facility] for chest pain. The patient states the pain just hurts it is located on left side. He denies any aggravating or alleviating factors. He denies change in pain with aspirin or nitroglycerin given by EMS. EMS reports patient was hypertensive but otherwise had normal vital signs Related Data Home Medications Medication Instructions Recorded Confirmed amlodipine 10 mg tablet 10 mg PO DAILY 08/05/20 03/14/23 carvedilol 25 mg tablet 25 mg PO BID 08/05/20 03/14/23 clonidine HCl 0.3 mg tablet 0.3 mg PO TID 08/05/20 03/14/23 escitalopram oxalate 10 mg tablet 5 mg PO DAILY 08/05/20 03/14/23 ferrous sulfate 325 mg (65 mg 325 mg PO DAILY 08/05/20 03/14/23 iron) tablet folic acid 1 mg tablet 1 mg PO DAILY 08/05/20 03/14/23 hydralazine 25 mg tablet 25 mg PO TID 08/05/20 03/14/23 lisinopril 40 mg tablet 40 mg PO DAILY 08/05/20 03/14/23 mecobalamin (vitamin B12) 1,000 1,000 mcg PO DAILY 08/05/20 03/14/23 mcg chewable tablet multivitamin [id number]-yxfozlb See Rx Instructions .Route .COMPLEX 08/05/20 03/14/23 fumarate 18 mg-vitamin K 25 mcg tablet (Adults' Daily Formula) sennosides 8.6 mg-docusate sodium 1 tab-cap PO HS 08/05/20 03/14/23 50 mg tablet (Senexon-S) sodium chloride 1 gram tablet 1,000 mg PO TID 08/05/20 03/14/23 tamsulosin 0.4 mg capsule 0.4 mg PO DAILY 08/05/20 03/14/23 thiamine HCl (vitamin B1) 100 mg 100 mg PO DAILY 08/05/20 03/14/23 tablet albuterol 90 mcg/actuation aerosol See Rx Instructions .Route 03/14/23 03/14/23 inhaler .COMPLEX PRN Shortness Of Breath famotidine 20 mg tablet 20 mg PO QAM 03/14/23 03/14/23 gabapentin 100 mg tablet 100 mg PO TID 03/14/23 03/14/23 gabapentin 600 mg tablet 600 mg TID 03/14/23 03/14/23 tramadol 50 mg tablet 50 mg TID 03/14/23 03/14/23 trazodone 100 mg tablet 100 mg PO QHS 03/14/23 03/14/23 Allergies Allergy/AdvReac Type Severity Reaction Status Date / Time No Known Allergies Allergy Verified 03/14/23 07:10 Review of Systems Review of Systems: CONSTITUTIONAL: Denies fever, chills, or sweats. CARDIOVASCULAR: Chest pain Denies palpitations, or edema. RESPIRATORY: Denies cough or dyspnea. GASTROINTESTINAL: Denies abdominal pain, nausea, vomiting, or diarrhea. GENITOURINARY: Denies dysuria or hematuria. SKIN: Denies rash or itching. MUSCULOSKELETAL: Denies back pain, joint pain, or myalgia. NEUROLOGIC: Denies headache, numbness, dizziness, or weakness. PSYCHIATRIC: Denies anxiety or depression. [facility] Past Medical History Medical History (Updated 03/14/23 @ 17:00 by Marky Cordoba MD) CVA (cerebral vascular accident) Dementia Hypertension Right sided weakness Social History Social History Smoking status: Former smoker Alcohol intake: former Substance use: unknown Living arrangements: [facility] Gender identity (if verbalized by the patient): Male Exam Narrative: GENERAL: Well-appearing, well-nourished, in mild distress due to pain HEAD: Normocephalic, atraumatic. EYES: PERRLA and EOMI. NECK: Supple. No carotid bruits or JVD CHEST: Clear to auscultation. No respiratory distress. No wheezes rales or rhonchi HEART: Regular rate and rhythm. No murmur heard. Normal peripheral pulses. ABDOMEN: Soft, nontender, nondistended, normal active bowel sounds. EXTREMITIES: Normal range of motion. No edema. SKIN: Warm, dry, no rash. NEURO: Alert and oriented x3. Right-sided paralysis. strength intact in the left upper and lower PSYCH: Normal mood and affect. Course Course Emergency Course: 09:31 - EKG not concerning for ischemia. Initial troponin negative. Heart score 4. Hemoglobin 12.7 CBC otherwise unre
[2023-03-14 08:08] LABS: Partial Thromboplastin Time 26.7 SECONDS (22.3-36.8)
--- NOTE | 2023-03-14 08:14 | PC.NURSE ---
This RN assisted patient with urinal
[2023-03-14 08:19] LABS: D Dimer 19.32 ug/mL (<0.48)
[2023-03-14 10:51] LABS: Troponin I 0.019 ng/mL (0.000-0.034)
--- NOTE | 2023-03-14 11:36 | PM.IMHP ---
H&P: HPI History of Present Illness Date/Time: 03/14/23 11:36 Chief Complaint: Chest pain Narrative: This 63-year-old residential resident was sent to the emergency room due to complaints of pain and agitation. He was crying out. He was unable to give a history other than that he had pain everywhere. Most prominent was the right upper abdomen and the low right lower extremity. During ER evaluation he had a CTA of the chest abdomen and pelvis that was negative for pulmonary embolus or aortic dissection. It did show a 0.3 cm left lower lobe nodule. His 1st troponin was undetectable the low and his 2nd was 0.019. His D-dimer was elevated at 19.32. EKG showed normal sinus rhythm with first-degree AV block without ischemic changes. There was baseline artifact. Review of Systems Review of Systems: ROS unobtainable: Yes unobtainable due to mental status PMFSH Past Medical History Medical History (Updated 03/14/23 @ 17:00 by Marky Cordoba MD) CVA (cerebral vascular accident) Dementia Hypertension Right sided weakness Social History Social History Smoking status: Former smoker Alcohol intake: former Substance use: unknown Living arrangements: residential Gender identity (if verbalized by the patient): Male Meds Home Medications and Allergies Home Medications Medication Instructions Recorded Confirmed Type amlodipine 10 mg tablet 10 mg PO DAILY 08/05/20 03/14/23 History carvedilol 25 mg tablet 25 mg PO BID 08/05/20 03/14/23 History clonidine HCl 0.3 mg tablet 0.3 mg PO TID 08/05/20 03/14/23 History escitalopram oxalate 10 mg tablet 5 mg PO DAILY 08/05/20 03/14/23 History ferrous sulfate 325 mg (65 mg 325 mg PO DAILY 08/05/20 03/14/23 History iron) tablet folic acid 1 mg tablet 1 mg PO DAILY 08/05/20 03/14/23 History hydralazine 25 mg tablet 25 mg PO TID 08/05/20 03/14/23 History lisinopril 40 mg tablet 40 mg PO DAILY 08/05/20 03/14/23 History mecobalamin (vitamin B12) 1,000 1,000 mcg PO DAILY 08/05/20 03/14/23 History mcg chewable tablet multivitamin [id number]-zgyrljtv-rlgmuhu See Rx Instructions .Route .COMPLEX 08/05/20 03/14/23 History fumarate 18 mg-vitamin K 25 mcg tablet (Adults' Daily Formula) sennosides 8.6 mg-docusate sodium 1 tab-cap PO HS 08/05/20 03/14/23 History 50 mg tablet (Senexon-S) sodium chloride 1 gram tablet 1,000 mg PO TID 08/05/20 03/14/23 History tamsulosin 0.4 mg capsule 0.4 mg PO DAILY 08/05/20 03/14/23 History thiamine HCl (vitamin B1) 100 mg 100 mg PO DAILY 08/05/20 03/14/23 History tablet albuterol 90 mcg/actuation aerosol See Rx Instructions .Route 03/14/23 03/14/23 History inhaler .COMPLEX PRN Shortness Of Breath famotidine 20 mg tablet 20 mg PO QAM 03/14/23 03/14/23 History gabapentin 100 mg tablet 100 mg PO TID 03/14/23 03/14/23 History gabapentin 600 mg tablet 600 mg TID 03/14/23 03/14/23 History tramadol 50 mg tablet 50 mg TID 03/14/23 03/14/23 History trazodone 100 mg tablet 100 mg PO QHS 03/14/23 03/14/23 History Allergies Allergy/AdvReac Type Severity Reaction Status Date / Time No Known Allergies Allergy Verified 03/14/23 07:10 Vital Signs Vital Signs - 24 hr 03/14/23 06:40 03/14/23 06:51 03/14/23 06:53 Temperature 98.7 F 98.7 F Pulse Rate 84 87 84 Respiratory Rate 15 17 Blood Pressure 208/83 H Pulse Oximetry 97 98 Oxygen Delivery Room Air 03/14/23 07:28 03/14/23 06:52 03/14/23 06:54 Temperature Pulse Rate 79 87 82 Respiratory Rate 18 16 21 H Blood Pressure 199/77 H 208/83 H Pulse Oximetry 97 98 98 Oxygen Delivery 03/14/23 07:00 03/14/23 07:06 03/14/23 07:08 Temperature Pulse Rate 88 84 84 Respiratory Rate 20 12 17 Blood Pressure 201/82 H 183/88 H Pulse Oximetry 94 98 99 Oxygen Delivery 03/14/23 07:09 03/14/23 07:16 03/14/23 07:24 Temperature Pulse Rate 84 86 80 Respiratory Rate 15 13 19 Blood Pressure 194/100 H 207/81 H 199/77 H
--- NOTE | 2023-03-14 11:59 | ADMGEN ---
This patient, Keenan Sen, was admitted to IMU Room 206-01. Patient/family oriented to hospital policies and general routines including ID bracelet, bed and alarms, visiting hours, pain management, procedures, bathroom and other care routines, personal items, smoking policy, room service/diet, and visiting hours. Information on how to activate the Rapid Response Team has been discussed. Patient/Family are encouraged to report perceived risks to care and to ask questions if they do not understand what they are told or what they should do.
[2023-03-14] MEDS: HYDROmorphone HCL INJ (*CRX) 1 MG/ML SYR IV PUSH ×2 (12:00→17:00)
[2023-03-14] MEDS: cloNIDine HCL 0.1 MG TABLET 0.3 MG PO ×2 (12:00)
[2023-03-14 13:11] LABS: Iron 50 ug/dL (49-181)
[2023-03-14 13:12] LABS: Lactic Acid Reflex 1.1 mmol/L (0.7-2.0)
[2023-03-14 13:14] LABS: Lipase 26 U/L (23-300)
[2023-03-14 13:22] LABS: Percent Iron Saturation 19 % (20-50)
[2023-03-14 13:29] LABS: Troponin I 0.019 ng/mL (0.000-0.034)
[2023-03-14 13:43] LABS: Thyroid Stimulating Hormone Reflex 0.733 uIU/mL (0.465-4.68)
[2023-03-14 14:19] LABS: Folic Acid 16.9 ng/mL (2.76->20)
[2023-03-14] MEDS: carvediloL 25 MG TABLET PO (17:49)
[2023-03-14] MEDS: hydrALAZINE HCL 25 MG TABLET PO (17:49)
[2023-03-14] MEDS: SODIUM CHLORIDE 1 GM TABLET PO (17:50)
[2023-03-14] MEDS: PREGABALIN (*CRX) 50 MG CAPSULE 200 MG PO (21:29)
[2023-03-14] MEDS: traZODone HCL 50 MG TABLET 100 MG PO (21:30)
[2023-03-14] MEDS: PANTOPRAZOLE 40 MG TABLET PO (21:30)
[2023-03-14] MEDS: SENNA/DOCUSATE SODIUM TABLET 1 TAB PO (21:30)
[2023-03-15] VITALS (18 sets, daily range): BP systolic 111–186; BP diastolic 61–81; PULSE 69–97; RESP 18–19; TEMP 36.3–36.8; O2SAT 90–99
[2023-03-15 05:06] LABS: Basophils Percent Auto 0.3 % (0.2-1.2); Eosinophils Absolute Auto 0.1 K/mm3 (0-0.3); Eosinophils Percent Auto 1.5 % (0-4.4); Hemoglobin 12.7 g/dL (14.0-18.0); Immature Granulocyte Absolute 0.02 K/mm3 (0.00-0.031); Immature Granulocyte Percent A 0.3 % (0-0.5); Lymphocytes Absolute Auto 1.44 K/mm3 (0.9-3.2); Lymphocytes Percent Auto 24.3 % (18.3-44.2); Mean Corpuscular HGB Conc 33.4 g/dl (32-36); Mean Corpuscular Hemoglobin 32.3 pg (26-34); Mean Corpuscular Volume 96.7 fl (80-100); Mean Platelet Volume 9.1 fl (7.4-10.4); Monocytes Absolute Auto 0.6 K/mm3 (0.1-0.6); Monocytes Percent Auto 9.4 % (2.6-8.5); Neutrophils Absolute Auto 3.8 K/mm3 (1.3-6.7); Neutrophils Percent Auto 64.2 % (45.5-73.1); Platelet Count Result 353 k/mm3 (150-375); Red Blood Count 3.93 M/mm3 (4.6-6.20); Red Cell Distribution Width 13.3 % (11.5-14.5); White Blood Count 5.9 K/mm3 (4.5-10.0)
[2023-03-15 05:17] LABS: Alanine Aminotransferase 14 U/L (6-50); Albumin Level 4.5 g/dL (3.5-5.1); Alkaline Phosphatase 64 U/L (38-126); Anion Gap 11 mmol/L (8-16); Aspartate Amino Transferase 27 U/L (17-59); Bilirubin,Total 0.9 mg/dL (0.2-1.3); Blood Urea Nitrogen 12 mg/dL (9-20); Calcium 9.6 mg/dL (8.4-10.2); Carbon Dioxide 25 mmol/L (22-30); Chloride 106 mmol/L (98-107); Estimated Glomerular Filt Rate > 60; Glucose 110 mg/dL (65-110); Potassium 3.4 mmol/L (3.4-5.0); Sodium 142 mmol/L (137-145)
[2023-03-15] MEDS: HYDROmorphone HCL INJ (*CRX) 1 MG/ML SYR IV PUSH ×3 (05:28→15:32)
[2023-03-15] MEDS: cloNIDine HCL 0.1 MG TABLET 0.3 MG PO ×3 (10:19→16:11)
[2023-03-15] MEDS: CYANOCOBALAMIN 1,000 MCG TABLET 1000 MCG PO (10:19)
[2023-03-15] MEDS: PREGABALIN (*CRX) 50 MG CAPSULE 200 MG PO ×2 (10:20→20:40)
[2023-03-15] MEDS: hydrALAZINE HCL 25 MG TABLET PO ×3 (10:20→16:11)
[2023-03-15] MEDS: FAMOTIDINE 20 MG TABLET PO (10:21)
[2023-03-15] MEDS: THIAMINE HCL 100 MG TABLET PO (10:21)
[2023-03-15] MEDS: SODIUM CHLORIDE 1 GM TABLET PO ×3 (10:21→16:11)
[2023-03-15] MEDS: lisinopriL 20 MG TABLET 40 MG PO (10:22)
[2023-03-15] MEDS: amLODIPine BESYLATE 5 MG TABLET 10 MG PO (10:22)
[2023-03-15] MEDS: FERROUS SULFATE 325 MG TABLET DR BY MOUTH (10:23)
[2023-03-15] MEDS: carvediloL 25 MG TABLET PO ×2 (10:23→16:11)
[2023-03-15] MEDS: DULoxetine HCL 30 MG CAPSULE.DR PO (10:24)
[2023-03-15] MEDS: FOLIC ACID 1 MG TABLET PO (10:24)
[2023-03-15] MEDS: PANTOPRAZOLE 40 MG TABLET PO ×2 (10:24→20:39)
[2023-03-15] MEDS: THERAPEUTIC MULTIVITAMINS/MINERALS TAB (*BKC) 1 TABLET BY MOUTH (10:25)
[2023-03-15] MEDS: TAMSULOSIN HCL 0.4 MG CAPSULE PO (10:25)
--- NOTE | 2023-03-15 13:56 | PM.IMPN ---
Progress Note: A&P Assessment and Plan (1) Chest pain: Qualifiers: Chest pain type: unspecified Qualified Code(s): R07.9 - Chest pain, unspecified Code(s): R07.9 - Chest pain, unspecified Status: Acute Assessment and Plan: Pt had ct chest abdo and pelvis which was negative ? muscular pain EKG shows - first degree AV block pt is on telemetry troponin minimally elevated (2) Abdominal pain: Qualifiers: Abdominal location: right upper quadrant Qualified Code(s): R10.11 - Right upper quadrant pain Code(s): R10.9 - Unspecified abdominal pain Status: Acute Assessment and Plan: Consider cholecystitis or peptic ulcer disease started pantoprazole empirically and added laxative (3) Hypertension: Qualifiers: Hypertension type: unspecified Qualified Code(s): I10 - Essential (primary) hypertension Code(s): I10 - Essential (primary) hypertension Status: Acute Assessment and Plan: Bp slightly high Resumed home meds along with p.r.n. IV hydralazine and analgesics (4) Anemia: Qualifiers: Anemia type: unspecified type Qualified Code(s): D64.9 - Anemia, unspecified Code(s): D64.9 - Anemia, unspecified Status: Acute Assessment and Plan: Normochromic and normocytic and stable since 2020 Labs ordered including stool for occult blood (5) Chronic pain syndrome: Code(s): G89.4 - Chronic pain syndrome Status: Acute Assessment and Plan: RLE post-stroke Gabapentin not controlling adequately initiated trial of pregabalin and duloxetine (stopped escitalopram) consult orthopedics for R shoulder pain XRay of R shoulder negative for fracture (6) Elevated d-dimer: Code(s): R79.89 - Other specified abnormal findings of blood chemistry Status: Acute Assessment and Plan: venous doppler is negative Pulmonary CTA negative for PE (7) Dementia: Qualifiers: Dementia type: unspecified type Dementia severity: severe Dementia behavioral or psychological symptom: with agitation Qualified Code(s): F03.C11 - Unspecified dementia, severe, with agitation Code(s): F03.90 - Unspecified dementia, unspecified severity, without behavioral disturbance, psychotic disturbance, mood disturbance, and anxiety Status: Acute Assessment and Plan: Likely at baseline mental status (8) Right sided weakness: Code(s): R53.1 - Weakness Status: Acute Assessment and Plan: Chronic since stroke continue PT in hospital Subjective Date/time seen: 03/15/23 13:56 Interval history: 63-year-old group home resident was sent to the emergency room due to complaints of pain and agitation.? Pt complains of R shoulder pain and R hip pain Review of Systems Review of Systems: R shoulder pain severe ROS unobtainable: Yes unobtainable due to mental status Exam Narrative: HEENT: PERRL, sclerae nonicteric, pharyngeal mucosa pink and intact NECK: No JVD, adenopathy, or thyromegaly CHEST: Clear to auscultation. Normal effort. HEART: NL S1/S2, regular, no murmur ABDOMEN: BS+ but hypoactive, protuberant, tympanitic, tender right upper quadrant without guarding or rebound or palpable mass. EXTREMITIES: No cyanosis, edema, or clubbing NEUROLOGIC: CN intact and symmetric to inspection. Decreased strength right upper extremity. No strength right lower extremity. MUSCULOSKELETAL: Weakness right upper and lower extremity with right footdrop and severe tightness of right calcaneal tendon. Tender to palpation over right calf. PSYCH: Alert. Agitated. Intermittently yelling out. Oriented to person but not to place or time. Objective Data Vital Signs Vital Signs: Vital Signs - 24 hr 03/14/23 15:32 03/14/23 17:49 03/14/23 16:00 Temperature 37.5 C Pulse Rate 95 90 90 Respiratory Rate 22 H 22 H Blood Pressure 151/91 H P
[2023-03-15] MEDS: SENNA/DOCUSATE SODIUM TABLET 1 TAB PO (20:40)
[2023-03-15] MEDS: traZODone HCL 50 MG TABLET 100 MG PO (20:40)
[2023-03-16] VITALS (17 sets, daily range): BP systolic 107–169; BP diastolic 59–69; PULSE 70–87; RESP 18; TEMP 36.4–37.1; O2SAT 95–99; BMI 19.4
[2023-03-16] MEDS: HYDROmorphone HCL INJ (*CRX) 1 MG/ML SYR IV PUSH (01:07)
[2023-03-16] MEDS: PREGABALIN (*CRX) 50 MG CAPSULE 200 MG PO (08:46)
[2023-03-16] MEDS: FAMOTIDINE 20 MG TABLET PO (08:54)
[2023-03-16] MEDS: carvediloL 25 MG TABLET PO ×2 (08:55→17:49)
[2023-03-16] MEDS: cloNIDine HCL 0.1 MG TABLET 0.3 MG PO ×3 (08:55→21:45)
[2023-03-16] MEDS: TAMSULOSIN HCL 0.4 MG CAPSULE PO (08:55)
[2023-03-16] MEDS: amLODIPine BESYLATE 5 MG TABLET 10 MG PO (08:56)
[2023-03-16] MEDS: THIAMINE HCL 100 MG TABLET PO (08:56)
[2023-03-16] MEDS: FOLIC ACID 1 MG TABLET PO (08:56)
[2023-03-16] MEDS: CYANOCOBALAMIN 1,000 MCG TABLET 1000 MCG PO (08:56)
[2023-03-16] MEDS: DULoxetine HCL 30 MG CAPSULE.DR PO (08:57)
[2023-03-16] MEDS: lisinopriL 20 MG TABLET 40 MG PO (08:57)
[2023-03-16] MEDS: hydrALAZINE HCL 25 MG TABLET PO ×3 (08:58→21:45)
[2023-03-16] MEDS: THERAPEUTIC MULTIVITAMINS/MINERALS TAB (*BKC) 1 TABLET BY MOUTH (08:58)
[2023-03-16] MEDS: PANTOPRAZOLE 40 MG TABLET PO ×2 (08:58→21:44)
[2023-03-16] MEDS: SODIUM CHLORIDE 1 GM TABLET PO ×3 (08:59→17:49)
[2023-03-16] MEDS: FERROUS SULFATE 325 MG TABLET DR BY MOUTH (08:59)
[2023-03-16] MEDS: PREGABALIN (*CRX) 50 MG CAPSULE 100 MG PO ×2 (14:30→21:45)
--- NOTE | 2023-03-16 14:31 | PM.CNOR ---
Assessment and Plan Assessment and plan (1) Chronic pain syndrome: Code(s): G89.4 - Chronic pain syndrome Status: Acute Assessment and Plan: New patient evaluation for chief complaint Chronic right-sided arm and leg pain. History, physical exam and Ultrasound reviewed with the patient. history of stroke involving right hemiparesis 3 years ago. Flexion contractures of the fingers and thumb. No active motion of the lower leg ankle foot or toes. Non ambulatory. Discussed the condition, nature, etiology and course of natural history with the patient. Treatment options were reviewed. Risks and benefits of each as well as alternatives reviewed. The patient's questions were answered. Conservative treatment ice, compression and elevation. No surgical indication at this time. Continue with pain control. (2) Right sided weakness: Code(s): R53.1 - Weakness Status: Acute History of Present Illness HPI Consult date: 03/16/23 Requesting physician: Emily Reno MD Consult reason: joint pain Chief complaint: Chest pain Narrative: 63-year-old gentleman with history of stroke involving the right upper and lower extremity. Chronic pain of the right arm and right leg. S to see patient for pain of the right shoulder and upper arm and right leg. Patient denies any injury or recent event. Pain for the past 3 years. Nonambulatory. Review of Systems Constitutional: Constitutional: Denies fever(s) Eyes: Eyes: Denies blurry vision ENT: Reports Normal hearing present Cardiovascular: Cardiovascular: Denies chest pain and Denies dyspnea Respiratory: Respiratory: Denies dyspnea and Denies wheezing Gastrointestinal: Gastrointestinal: Denies abdominal pain Genitourinary: Genitourinary: Denies urinary urgency Musculoskeletal: Musculoskeletal: Reports as per HPI and Denies numbness Integumentary/Breasts: Skin/Breast: Denies changing lesions and Denies sores Neurologic: Reports Normal hearing present Psychiatric: Psychiatric: Denies behavioral changes, Denies confusion and Denies hallucinations Endocrine: Endocrine: Denies heat intolerance Hematologic/Lymphatic: Hematologic/Lymphatic: Denies easy bleeding Allergic/Immunologic: Allergic/Immunologic: Denies wheezing PMFSH Past Medical History Medical History CVA (cerebral vascular accident) Dementia Hypertension Right sided weakness Social History Social History Smoking status: Former smoker Alcohol intake: former Substance use: unknown Living arrangements: fdc Gender identity (if verbalized by the patient): Male Spiritual care concerns: No Meds Home Medications and Allergies Home Medications Medication Instructions Recorded Confirmed Type amlodipine 10 mg tablet 10 mg PO DAILY 08/05/20 03/14/23 History carvedilol 25 mg tablet 25 mg PO BID 08/05/20 03/14/23 History clonidine HCl 0.3 mg tablet 0.3 mg PO TID 08/05/20 03/14/23 History escitalopram oxalate 10 mg tablet 5 mg PO DAILY 08/05/20 03/14/23 History ferrous sulfate 325 mg (65 mg 325 mg PO DAILY 08/05/20 03/14/23 History iron) tablet folic acid 1 mg tablet 1 mg PO DAILY 08/05/20 03/14/23 History hydralazine 25 mg tablet 25 mg PO TID 08/05/20 03/14/23 History lisinopril 40 mg tablet 40 mg PO DAILY 08/05/20 03/14/23 History mecobalamin (vitamin B12) 1,000 1,000 mcg PO DAILY 08/05/20 03/14/23 History mcg chewable tablet multivitamin [id number] See Rx Instructions .Route .COMPLEX 08/05/20 03/14/23 History fumarate 18 mg-vitamin K 25 mcg tablet (Adults' Daily Formula) sennosides 8.6 mg-docusate sodium 1 tab-cap PO HS 08/05/20 03/14/23 History 50 mg tablet (Senexon-S) sodium chloride 1 gram tablet 1,000 mg PO TID 08/05/20 03/14/23 History tamsulosin 0.4 mg capsule 0.4 mg PO DAILY 08/05/20 03/14/23 History thiamine HCl (v
--- NOTE | 2023-03-16 19:17 | P.PNIM_ITS ---
Progress Note: A&P Assessment and Plan (1) Chest pain: Qualifiers: Chest pain type: unspecified Qualified Code(s): R07.9 - Chest pain, unspecified Code(s): R07.9 - Chest pain, unspecified Status: Acute Assessment and Plan: * Pt had ct chest abdo and pelvis which was negative ? muscular pain EKG shows - first degree AV block pt is on telemetry troponin levels normal (2) Abdominal pain: Qualifiers: Abdominal location: right upper quadrant Qualified Code(s): R10.11 - Right upper quadrant pain Code(s): R10.9 - Unspecified abdominal pain Status: Acute Assessment and Plan: * Consider cholecystitis or peptic ulcer disease * started pantoprazole empirically and added laxative (3) Hypertension: Qualifiers: Hypertension type: unspecified Qualified Code(s): I10 - Essential (primary) hypertension Code(s): I10 - Essential (primary) hypertension Status: Acute Assessment and Plan: Bp slightly high * Resumed home meds along with p.r.n. IV hydralazine and analgesics (4) Anemia: Qualifiers: Anemia type: unspecified type Qualified Code(s): D64.9 - Anemia, unspecified Code(s): D64.9 - Anemia, unspecified Status: Acute Assessment and Plan: * Normochromic and normocytic and stable since 2020 * Labs ordered including stool for occult blood (5) Chronic pain syndrome: Code(s): G89.4 - Chronic pain syndrome Status: Acute Assessment and Plan: * RLE post-stroke * Gabapentin not controlling adequately * initiated trial of pregabalin and duloxetine (stopped escitalopram) * Select Lyrica 100 mg p.o. t.i.d. * DC IV pain meds, started on [place] 5/325 mg 1 tablet q.6 hours. * consult orthopedics for R shoulder pain * XRay of R shoulder negative for fracture (6) Elevated d-dimer: Code(s): R79.89 - Other specified abnormal findings of blood chemistry Status: Acute Assessment and Plan: * venous doppler is negative * Pulmonary CTA negative for PE (7) Dementia: Qualifiers: Dementia type: unspecified type Dementia severity: severe Dementia behavioral or psychological symptom: with agitation Qualified Code(s): F03.C11 - Unspecified dementia, severe, with agitation Code(s): F03.90 - Unspecified dementia, unspecified severity, without behavioral disturbance, psychotic disturbance, mood disturbance, and anxiety Status: Acute Assessment and Plan: * Likely at baseline mental status (8) Right sided weakness: Code(s): R53.1 - Weakness Status: Acute Assessment and Plan: * Chronic since stroke * continue PT in hospital Plan DC planning back to [facility] in a.m. if he remains stable and pain is controlled ? Patient seen and examined at bedside during my morning rounds ? Collaborated with patient's nurse at the bedside in detail and addressed all concerns ? Labs, electrolytes, radiology, investigations and test results reviewed ? Consult/Nursing/Ancilliary notes on the chart reviewed and appreciated Repeat labs in a.m. Electrolyte replacement as per protocol. Patient will be monitored very closely on the floor. Further recommendations as per the hospital course. Time Spent With Patient Time with patient: 25 - 35 minutes Subjective Date/time seen: 03/16/23 19:17 Interval history: 63-year-old correction resident was sent to the emergency room due to complaints of pain and agitation.? Pt com
--- NOTE | 2023-03-16 19:17 | PM.IMPN ---
Progress Note: A&P Assessment and Plan (1) Chest pain: Qualifiers: Chest pain type: unspecified Qualified Code(s): R07.9 - Chest pain, unspecified Code(s): R07.9 - Chest pain, unspecified Status: Acute Assessment and Plan: Pt had ct chest abdo and pelvis which was negative ? muscular pain EKG shows - first degree AV block pt is on telemetry troponin levels normal (2) Abdominal pain: Qualifiers: Abdominal location: right upper quadrant Qualified Code(s): R10.11 - Right upper quadrant pain Code(s): R10.9 - Unspecified abdominal pain Status: Acute Assessment and Plan: Consider cholecystitis or peptic ulcer disease started pantoprazole empirically and added laxative (3) Hypertension: Qualifiers: Hypertension type: unspecified Qualified Code(s): I10 - Essential (primary) hypertension Code(s): I10 - Essential (primary) hypertension Status: Acute Assessment and Plan: Bp slightly high Resumed home meds along with p.r.n. IV hydralazine and analgesics (4) Anemia: Qualifiers: Anemia type: unspecified type Qualified Code(s): D64.9 - Anemia, unspecified Code(s): D64.9 - Anemia, unspecified Status: Acute Assessment and Plan: Normochromic and normocytic and stable since 2020 Labs ordered including stool for occult blood (5) Chronic pain syndrome: Code(s): G89.4 - Chronic pain syndrome Status: Acute Assessment and Plan: RLE post-stroke Gabapentin not controlling adequately initiated trial of pregabalin and duloxetine (stopped escitalopram) Select Lyrica 100 mg p.o. t.i.d. DC IV pain meds, started on [place] 5/325 mg 1 tablet q.6 hours. consult orthopedics for R shoulder pain XRay of R shoulder negative for fracture (6) Elevated d-dimer: Code(s): R79.89 - Other specified abnormal findings of blood chemistry Status: Acute Assessment and Plan: venous doppler is negative Pulmonary CTA negative for PE (7) Dementia: Qualifiers: Dementia type: unspecified type Dementia severity: severe Dementia behavioral or psychological symptom: with agitation Qualified Code(s): F03.C11 - Unspecified dementia, severe, with agitation Code(s): F03.90 - Unspecified dementia, unspecified severity, without behavioral disturbance, psychotic disturbance, mood disturbance, and anxiety Status: Acute Assessment and Plan: Likely at baseline mental status (8) Right sided weakness: Code(s): R53.1 - Weakness Status: Acute Assessment and Plan: Chronic since stroke continue PT in hospital Plan DC planning back to [facility] in a.m. if he remains stable and pain is controlled ? Patient seen and examined at bedside during my morning rounds ? Collaborated with patient's nurse at the bedside in detail and addressed all concerns ? Labs, electrolytes, radiology, investigations and test results reviewed ? Consult/Nursing/Ancilliary notes on the chart reviewed and appreciated Repeat labs in a.m. Electrolyte replacement as per protocol. Patient will be monitored very closely on the floor. Further recommendations as per the hospital course. Time Spent With Patient Time with patient: 25 - 35 minutes Subjective Date/time seen: 03/16/23 19:17 Interval history: 63-year-old prison resident was sent to the emergency room due to complaints of pain and agitation.? Pt complains of R shoulder pain and R hip pain Patient has prior history of stroke with the right arm and leg weakness and neurogenic pains Review of Systems Review of Systems: R shoulder pain severe, complains of generalized pain mostly on the right side, remains intermittently confused ROS unobtainable: Yes unobtainable due to mental status Exam Narrative: HEENT: PERRL, sclerae nonicteric, pharyngeal mucosa pink and intact NECK: No J
[2023-03-16] MEDS: SENNA/DOCUSATE SODIUM TABLET 1 TAB PO (21:44)
[2023-03-16] MEDS: traZODone HCL 50 MG TABLET 100 MG PO (21:47)
[2023-03-17] VITALS (11 sets, daily range): BP systolic 107–153; BP diastolic 54–98; PULSE 68–85; RESP 16–18; TEMP 36–36.6; O2SAT 97–99
[2023-03-17 05:40] LABS: Basophils Percent Auto 0.5 % (0.2-1.2); Eosinophils Absolute Auto 0.2 K/mm3 (0-0.3); Eosinophils Percent Auto 2.9 % (0-4.4); Hematocrit 35.5 % (42.0-52.0); Hemoglobin 11.7 g/dL (14.0-18.0); Immature Granulocyte Absolute 0.02 K/mm3 (0.00-0.031); Immature Granulocyte Percent A 0.3 % (0-0.5); Lymphocytes Absolute Auto 1.41 K/mm3 (0.9-3.2); Lymphocytes Percent Auto 22.9 % (18.3-44.2); Mean Corpuscular Hemoglobin 32.1 pg (26-34); Mean Corpuscular Volume 97.3 fl (80-100); Mean Platelet Volume 9.7 fl (7.4-10.4); Monocytes Absolute Auto 0.7 K/mm3 (0.1-0.6); Monocytes Percent Auto 10.5 % (2.6-8.5); Neutrophils Absolute Auto 3.9 K/mm3 (1.3-6.7); Neutrophils Percent Auto 62.9 % (45.5-73.1); Platelet Count Result 340 k/mm3 (150-375); Red Blood Count 3.65 M/mm3 (4.6-6.20); White Blood Count 6.2 K/mm3 (4.5-10.0)
[2023-03-17 05:53] LABS: Anion Gap 7 mmol/L (8-16); Blood Urea Nitrogen 16 mg/dL (9-20); Calcium 9.2 mg/dL (8.4-10.2); Carbon Dioxide 28 mmol/L (22-30); Chloride 106 mmol/L (98-107); Estimated CRCL calculation 97 ml/min; Estimated Glomerular Filt Rate > 60; Glucose 110 mg/dL (65-110); Magnesium 2.1 mg/dL (1.6-2.3); Phosphorus 3.4 mg/dL (2.5-4.5); Potassium 3.1 mmol/L (3.4-5.0); Sodium 141 mmol/L (137-145)
[2023-03-17] MEDS: hydrALAZINE HCL 25 MG TABLET PO ×2 (06:10→14:04)
[2023-03-17] MEDS: cloNIDine HCL 0.1 MG TABLET 0.3 MG PO ×2 (06:10→14:04)
[2023-03-17] MEDS: PREGABALIN (*CRX) 50 MG CAPSULE 100 MG PO ×2 (06:11→14:04)
[2023-03-17] MEDS: amLODIPine BESYLATE 5 MG TABLET 10 MG PO (10:00)
[2023-03-17] MEDS: CYANOCOBALAMIN 1,000 MCG TABLET 1000 MCG PO (10:00)
[2023-03-17] MEDS: THERAPEUTIC MULTIVITAMINS/MINERALS TAB (*BKC) 1 TABLET BY MOUTH (10:00)
[2023-03-17] MEDS: carvediloL 25 MG TABLET PO ×2 (10:00→16:52)
[2023-03-17] MEDS: FAMOTIDINE 20 MG TABLET PO (10:00)
[2023-03-17] MEDS: TAMSULOSIN HCL 0.4 MG CAPSULE PO (10:00)
[2023-03-17] MEDS: DULoxetine HCL 30 MG CAPSULE.DR PO (10:00)
[2023-03-17] MEDS: PANTOPRAZOLE 40 MG TABLET PO (10:00)
[2023-03-17] MEDS: lisinopriL 20 MG TABLET 40 MG PO (10:01)
[2023-03-17] MEDS: SODIUM CHLORIDE 1 GM TABLET PO ×3 (10:01→16:52)
[2023-03-17] MEDS: FERROUS SULFATE 325 MG TABLET DR BY MOUTH (10:01)
[2023-03-17] MEDS: THIAMINE HCL 100 MG TABLET PO (10:01)
[2023-03-17] MEDS: FOLIC ACID 1 MG TABLET PO (10:01)
[2023-03-17] MEDS: POTASSIUM CHLORIDE 20 MEQ PACKET (FOR LIQUID) 40 MEQ PO (10:12)
[2023-03-17] MEDS: KCL 20 MEQ/SW 100 ML 100 ML 50 MEQ IVPB (10:12)
--- NOTE | 2023-03-17 12:17 | PM.DS ---
DS: Admitting Diagnosis Discharge Date 03/17/2023: Admitting Diagnosis Atypical chest pain Chronic pain syndrome Chronic Neuropathy DS: Discharge Diagnosis Discharge Diagnosis (1) Chronic pain syndrome: Code(s): G89.4 - Chronic pain syndrome Status: Acute (2) Anemia: Qualifiers: Anemia type: unspecified type Qualified Code(s): D64.9 - Anemia, unspecified Code(s): D64.9 - Anemia, unspecified Status: Acute (3) Right sided weakness: Code(s): R53.1 - Weakness Status: Acute (4) Hypertension: Qualifiers: Hypertension type: unspecified Qualified Code(s): I10 - Essential (primary) hypertension Code(s): I10 - Essential (primary) hypertension Status: Acute (5) Dementia: Qualifiers: Dementia type: unspecified type Dementia severity: severe Dementia behavioral or psychological symptom: with agitation Qualified Code(s): F03.C11 - Unspecified dementia, severe, with agitation Code(s): F03.90 - Unspecified dementia, unspecified severity, without behavioral disturbance, psychotic disturbance, mood disturbance, and anxiety Status: Acute (6) Abdominal pain: Qualifiers: Abdominal location: right upper quadrant Qualified Code(s): R10.11 - Right upper quadrant pain Code(s): R10.9 - Unspecified abdominal pain Status: Acute (7) Non-cardiac chest pain: Code(s): R07.89 - Other chest pain Status: Acute (8) Neuropathy: Code(s): G62.9 - Polyneuropathy, unspecified Status: Acute DS: Summary Hospital Course Reason for hospitalization: Patient admitted with atypical chest pain as well as pain in right arm and leg. Hospital Course: H&P: HPI History of Present Illness Date/Time: 03/14/23? 11:36 Chief Complaint: Chest pain Narrative: This 63-year-old detention resident was sent to the emergency room due to complaints of pain and agitation.? He was crying out.? He was unable to give a history other than that he had pain everywhere.? Most prominent was the right upper abdomen and the low right lower extremity.? During ER evaluation he had a CTA of the chest abdomen and pelvis that was negative for pulmonary embolus or aortic dissection.? It did show a 0.3 cm left lower lobe nodule.? His 1st troponin was undetectable the low and his 2nd was 0.019.? His D-dimer was elevated at 19.32.? EKG showed normal sinus rhythm with first-degree AV block without ischemic changes.? There was baseline artifact. HOSPITAL COURSE ... 03/10/2023 - 03/17/2023: (1) Chest pain: ?Qualifiers: ?Chest pain type:?unspecified? Qualified Code(s):?R07.9 - Chest pain, unspecified ?Code(s): R07.9 - Chest pain, unspecified ?Status:?Acute ?Assessment and Plan: Pt had ct chest abdo and pelvis which was negative? muscular pain EKG shows - first degree AV block? pt is on telemetry troponin levels normal Cardiac causes of chest pain ruled out (2) Abdominal pain: ?Qualifiers: ?Abdominal location:?right upper quadrant? Qualified Code(s):?R10.11 - Right upper quadrant pain ?Code(s): R10.9 - Unspecified abdominal pain ?Status:?Acute ?Assessment and Plan: Consider cholecystitis or peptic ulcer disease ?started pantoprazole empirically and added laxative(3) Hypertension: ?Qualifiers: ?Hypertension type:?unspecified? Qualified Code(s):?I10 - Essential (primary) hypertension ?Code(s): I10 - Essential (primary) hypertension ?Status:?Acute ?Assessment and Plan: Bp slightly high Resumed home meds along with p.r.n. IV hydralazine and analgesics (4) Anemia: ?Qualifiers: ?Anemia type:?unspecified type? Qualified Code(s):?D64.9 - Anemia, unspecified ?Code(s): D64.9 - Anemia, unspecified ?Status:?Acute ?Assessment and Plan: Normochromic and normocytic and stable since 2020 Labs ordered including stool for occult blood(5)
[2023-03-17 13:20] LABS: Potassium 4.4 mmol/L (3.4-5.0)
[2023-03-17 14:18] LABS: Influenza A QL RT-PCR Negative (Negative); Influenza B QL RT-PCR Negative (Negative); RSV RNA, RT-PCR Negative (Negative); SARS-CoV-2 RNA PCR Negative (Negative)
== END 2023-03-17 17:20 | DRG 57 ==
LOC: ANHED 08:28 → ANHIMU 10:21
PROVIDERS: Admitting Provider Internal Medicine; Emergency Provider Preventive Medicine Aerospace Medicine; Visit Provider Family Medicine
DX: I69.398 Other sequelae of cerebral infarction (principal); I69.351 Hemiplegia and hemiparesis following cerebral infarction affecting right dominant side; G89.4 Chronic pain syndrome; I10 Essential (primary) hypertension; D64.9 Anemia, unspecified; M79.621 Pain in right upper arm; M79.604 Pain in right leg; M25.551 Pain in right hip; R79.89 Other specified abnormal findings of blood chemistry; R07.9 Chest pain, unspecified; R10.11 Right upper quadrant pain; F03.90 Unspecified dementia, unspecified severity, without behavioral disturbance, psychotic disturbance, mood disturbance, and anxiety; Z20.822 Contact with and (suspected) exposure to COVID-19
CPT/HCPCS: 36415; 71045; 71275; 74174; 76705; 80048; 80053; 82607; 82746; 83540; 83550; 83605; 83690; 83735; 84100; 84132; 84443; 84484; 85025; 85380; 85610; 85730; 86140; 87637; 93005; 93971; 96374; 96375; 96376; 99285; A9270; G0378; J1170; J2270; J2405; J3480; Q9967

== ENCOUNTER 2023-04-29 19:17 | Inpatient (IN) | payer MEDICARE, MEDICAID, SELFPAY ==
[2023-04-29] VITALS (19 sets, daily range): BP systolic 96–146; BP diastolic 54–71; PULSE 79–87; RESP 14–21; TEMP 36.6; O2SAT 92–95
--- NOTE | ~2023-04-29 | XR_ITS ---
EXAMINATION: XR hip RT 2V w AP pelvis DATE: 04/29/2023 22:12 INDICATION: Right hip pain. TECHNIQUE: An anteroposterior view of the pelvis and 2 views of right hip were obtained. COMPARISON: Pelvis and right hip radiographs 08/05/2020 FINDINGS: Bone alignment is normal. No fracture. There is moderate osteoarthritis of the hips. There is mild lumbar spondylosis. IMPRESSION: 1. Moderate osteoarthritis of the hips. Reviewed, dictated and finalized at location E. [employer]
--- NOTE | ~2023-04-29 | US_ITS ---
EXAMINATION: US biopsy liver DATE: 04/30/2023 10:19 INDICATION: Multiple liver masses suspicious for metastatic disease TECHNIQUE: The procedure including the risks and benefits was discussed with the patient. Risks discu ssed included bleeding and infection. The patient understood the risks and agreed to proceed. The sk in overlying the left hepatic lobe was prepped and draped in usual sterile fashion. Anesthetic was a dministered with 1% lidocaine subcutaneously. An 18 gauge core biopsy needle was advanced under cont inuous ultrasound observation to the lesion of interest. 3 core biopsy specimens were obtained. The needle was removed and the entry site was cleaned and dressed. Post procedure ultrasound demonstrat ed no hemorrhage. FINDINGS: Ultrasound images demonstrate multiple hypoechoic masses scattered throughout the liver. Mccormick bsequent images demonstrate biopsy needle advanced through a couple of the 1-1.5 cm masses in the lef t hepatic lobe. IMPRESSION: 1. Successful Ultrasound-guided biopsy of a couple 1-1.5 cm hypoechoic masses in the left hepatic lob e. Reviewed, dictated and finalized at location A. [employer] IMPRESSION: 1. Successful Ultrasound-guided biopsy of a couple 1-1.5 cm hypoechoic masses i n the left hepatic lobe.
--- NOTE | ~2023-04-29 | XR_ITS ---
Portable chest x-ray Comparison: 03/14/2023 Clinical History: Shortness of breath Findings: Questionable minimal haziness left midlung. Right lung clear. No pleural effusion. Cardio mediastinal silhouette is stable. Bones and soft tissues are unremarkable. Impression: Questionable minimal haziness left midlung. Correlate for pneumonia or asymmetric mild pulmonary aaliyah a. Reviewed, dictated and finalized at location . ING PILOT Impression: Questionable minimal haziness left midlung. Correlate for pneumonia or asymmetr ic mild pulmonary edema.
--- NOTE | ~2023-04-29 | CT_ITS ---
EXAMINATION: CT abd pelvis lumbar w con DATE: 04/29/2023 22:19 INDICATION: Abdominal pain. Back pain. Right leg pain. TECHNIQUE: Computed tomography (CT) of the abdomen and pelvis and lumbar spine was performed with 100 mL Omnipaque 350 intravenous contrast. Automated exposure control and iterative reconstruction techn ique were employed. The dose-length product was 364.91 mGy-cm. COMPARISON: CT abdomen and pelvis 03/14/2023 FINDINGS: CT ABDOMEN AND PELVIS: The visualized portions of the lung bases demonstrate mild atelectasis. There is a 15 mm nodule in left lower lobe. No pleural effusion. The heart size is normal. No pericardial e ffusion. There are greater than 30 masses in the liver measuring up to 5.3 cm. The gallbladder is dis tended, which may be secondary to fasting. The spleen and pancreas are normal. There are masses in th e adrenal glands measuring up to 2.2 cm on the right. There is cortical thinning of the kidneys. Ther e is calcified atherosclerosis of the aorta and many of the other arteries. There is moderate stenosi s of the common iliac arteries, external iliac arteries, and superficial femoral arteries. The prosta te is mildly enlarged. There are no dilated loops of bowel. The appendix is normal. There is periport al, peripancreatic, aortocaval, and left para-aortic lymphadenopathy. There is no free intraperitonea l fluid. There is moderate osteoarthritis of the hips. There are widespread lytic lesions of bone. CT LUMBAR SPINE: Bone alignment is normal. Vertebral body heights are normal. There are widespread ly tic lesions of bone. Intervertebral disc heights are normal. The following disc levels are specifical ly discussed: L1-L2: The disc does not extend beyond the endplate margin. There is mild bilateral facet joint osteo arthritis. There is no neural foraminal stenosis. There is no central canal stenosis. L2-L3: The disc is bulging. There is moderate bilateral facet joint osteoarthritis. There is mild carlitos ateral neural foraminal stenosis. There is no central canal stenosis. L3-L4: The disc is bulging. There is moderate bilateral facet joint osteoarthritis. There is mild carlitos ateral neural foraminal stenosis. There is no central canal stenosis. L4-L5: The disc is bulging. There is moderate right and mild left facet joint osteoarthritis. There i s mild bilateral neural foraminal stenosis. There is mild central canal stenosis. L5-S1: The disc is bulging. There is mild bilateral facet joint osteoarthritis. There is mild bilater al neural foraminal stenosis. There is mild central canal stenosis. IMPRESSION: 1. Liver masses, lung nodule, adrenal masses, abdominal lymphadenopathy, and bone lesions, consistent with metastatic disease. Ultrasound-guided core needle biopsy of a liver mass is recommended. Reviewed, dictated and finalized at location E. [employer] IMPRESSION: 1. Liver masses, lung nodule, adrenal masses, abdominal lymphadenopathy, and estee ne lesions, consistent with metastatic disease. Ultrasound-guided core needle b iopsy of a liver mass is recommended.
[2023-04-29] MEDS: MORPHINE SULFATE (*CRX) 4 MG/ML INJ IV PUSH (21:50)
[2023-04-29 21:54] LABS: Basophils Percent Auto 0.4 % (0.2-1.2); Eosinophils Absolute Auto 0.2 K/mm3 (0-0.3); Eosinophils Percent Auto 1.9 % (0-4.4); Hematocrit 30.4 % (42.0-52.0); Hemoglobin 9.7 g/dL (14.0-18.0); Lymphocytes Absolute Auto 1.27 K/mm3 (0.9-3.2); Lymphocytes Percent Auto 12.9 % (18.3-44.2); Mean Corpuscular HGB Conc 31.9 g/dl (32-36); Mean Corpuscular Hemoglobin 31.5 pg (26-34); Mean Corpuscular Volume 98.7 fl (80-100); Mean Platelet Volume 10.5 fl (7.4-10.4); Monocytes Percent Auto 10.3 % (2.6-8.5); Neutrophils Absolute Auto 7.3 K/mm3 (1.3-6.7); Neutrophils Percent Auto 73.5 % (45.5-73.1); Nucleated Red Blood Cells Absolute Auto 0.1 K/mm3 (0.0-0.012); Nucleated Red Blood Cells Perc 0.9 % (0.0-0.2); Platelet Count Result 351 k/mm3 (150-375); Red Blood Count 3.08 M/mm3 (4.6-6.20); White Blood Count 9.9 K/mm3 (4.5-10.0)
[2023-04-29 22:04] LABS: Alanine Aminotransferase 30 U/L (6-50); Albumin Level 3.9 g/dL (3.5-5.1); Alkaline Phosphatase 121 U/L (38-126); Anion Gap 13 mmol/L (8-16); Aspartate Amino Transferase 67 U/L (17-59); Bilirubin,Total 0.8 mg/dL (0.2-1.3); Blood Urea Nitrogen 17 mg/dL (9-20); Calcium 9.2 mg/dL (8.4-10.2); Carbon Dioxide 23 mmol/L (22-30); Chloride 107 mmol/L (98-107); Estimated CRCL calculation 98 ml/min; Estimated Glomerular Filt Rate > 60; Glucose 118 mg/dL (65-110); Potassium 3.4 mmol/L (3.4-5.0); Sodium 143 mmol/L (137-145)
[2023-04-29 22:05] LABS: Lactic Acid Reflex 1.3 mmol/L (0.7-2.0)
[2023-04-30] VITALS (15 sets, daily range): BP systolic 118–162; BP diastolic 65–118; PULSE 82–99; RESP 16–24; TEMP 36.4–37.2; O2SAT 91–99; BMI 18.1
[2023-04-30 00:41] LABS: Appearance Urine Clear (Clear); Bacteria Urine None Seen /hpf; Bilirubin Urine Negative (Negative); Blood Urine Negative (Negative); Color Urine Dark Yellow (Yellow); Glucose Urine UA Negative (Negative); Ketones Urine Trace mg/dL (Negative); Leukocyte Esterase Ur Negative LEU/UL (Negative); Need Manual Microscopic Reviewed; Nitrate Urine Negative (Negative); Protein Urine 1+ mg/dL (Negative); RBC Urine 0-2 /hpf (0-2); Squamous Epithelial Cell Urine None seen /hpf (Few); WBC Urine 0-5 /hpf
[2023-04-30 00:45] LABS: Add Urine Microscopic? YES
[2023-04-30] MEDS: MORPHINE SULFATE (*CRX) 4 MG/ML INJ IV PUSH ×4 (01:22→19:47)
--- NOTE | 2023-04-30 01:30 | ED.GENADULT ---
HPI - General Adult General Chief complaint: Back Pain/Injury Stated complaint: BACK PAIN, HYPOXIA Time Seen by Provider: 04/29/23 20:47 History of Present Illness HPI narrative: patient is a 61-year-old gentleman who presents emergency department with chief complaint of abdominal pain back pain and right leg pain. Patient has been evaluated for back pain at the rehab facilities for the last several weeks but does report that has been having pain for the last 3 years. The patient has prior history of a stroke and has right-sided weakness at baseline. The patient was previously admitted to the hospital and [facility] for abdominal pain with essentially negative workup Related Data Home Medications Medication Instructions Recorded Confirmed amlodipine 10 mg tablet 10 mg PO DAILY 08/05/20 03/14/23 carvedilol 25 mg tablet 25 mg PO BID 08/05/20 03/14/23 clonidine HCl 0.3 mg tablet 0.3 mg PO TID 08/05/20 03/14/23 escitalopram oxalate 10 mg tablet 5 mg PO DAILY 08/05/20 03/14/23 ferrous sulfate 325 mg (65 mg 325 mg PO DAILY 08/05/20 03/14/23 iron) tablet folic acid 1 mg tablet 1 mg PO DAILY 08/05/20 03/14/23 hydralazine 25 mg tablet 25 mg PO TID 08/05/20 03/14/23 lisinopril 40 mg tablet 40 mg PO DAILY 08/05/20 03/14/23 mecobalamin (vitamin B12) 1,000 1,000 mcg PO DAILY 08/05/20 03/14/23 mcg chewable tablet multivitamin [id number]-ccqdqoc See Rx Instructions .Route .COMPLEX 08/05/20 03/14/23 fumarate 18 mg-vitamin K 25 mcg tablet (Adults' Daily Formula) sennosides 8.6 mg-docusate sodium 1 tab-cap PO HS 08/05/20 03/14/23 50 mg tablet (Senexon-S) tamsulosin 0.4 mg capsule 0.4 mg PO DAILY 08/05/20 03/14/23 thiamine HCl (vitamin B1) 100 mg 100 mg PO DAILY 08/05/20 03/14/23 tablet albuterol 90 mcg/actuation aerosol See Rx Instructions .Route 03/14/23 03/14/23 inhaler .COMPLEX PRN Shortness Of Breath trazodone 100 mg tablet 100 mg PO QHS 03/14/23 03/14/23 Allergies Allergy/AdvReac Type Severity Reaction Status Date / Time No Known Allergies Allergy Verified 03/14/23 07:10 Review of Systems Review of Systems: A 10 system review of systems was completed on the patient and is negative except for what is stated in the HPI. Nursing and ancillary documentation was reviewed. [facility] Past Medical History Medical History (Updated 04/30/23 @ 01:34 by Maximo Lieberman MD) CVA (cerebral vascular accident) Dementia Hypertension Neuropathy Right sided weakness Social History Social History Smoking status: Former smoker Alcohol intake: former Substance use: unknown Living arrangements: group home Gender identity (if verbalized by the patient): Male Spiritual care concerns: No Exam Narrative: GENERAL: Well-appearing, well-nourished, and in moderate acute pain distress. HEAD: Normocephalic, atraumatic. EYES: PERRLA and EOMI. ENT: Nares clear, no rhinorrhea or epistaxis. Mucous membranes moist. NECK: Supple. CHEST: Clear to auscultation. No respiratory distress. HEART: Regular rate and rhythm. No murmur heard. Normal peripheral pulses. ABDOMEN: Soft, nontender, nondistended, normal active bowel sounds. EXTREMITIES: Normal range of motion decreased range of motion of the right side. No edema. SKIN: Warm, dry, no rash. NEURO: No focal deficits. Alert and oriented x3. weakness on the right side PSYCH: Normal mood and affect. Course Vital Signs Vital signs: Vital Signs Temperature 36.6 C 04/29/23 19:27 Pulse Rate 81 04/29/23 19:27 Respiratory Rate 20 04/29/23 19:27 Blood Pressure 96/54 L 04/29/23 19:27 Pulse Oximetry 95 04/29/23 19:27 Oxygen Delivery Room Air 04/29/23 19:27 Temperature 36.6 C 04/29/23 19:27 Pulse Rate 79 04/29/23 20:16 Respiratory Rate 14 04/29/23 20:16 Blood Pressure 124/68 04/29/23 20:16 Pulse Oximetry 95 04/29/23 19:27 Oxygen Delivery Room Air 04/29/23 19:
--- NOTE | 2023-04-30 02:22 | PM.IMHP ---
H&P: HPI History of Present Illness Date/Time: 04/30/23 02:22 Chief Complaint: Abdominal pain back pain, right lower extremity pain Narrative: Patient is a 63-year-old male with history of CVA on right-sided hemiparesis, he is a poor historian due to chronic medical illness and pain, presented to emergency department for abdominal pain back pain and right lower extremity pain that has been chronic. He stated the pain may have been going on for up to 3 years, more localized on the right groin, he continued to moan during my encounter. He could not give me much details. Review of patient records showed that patient was recently admitted for similar symptom with no significant finding except nodule on the lung. He also told me that he has been to multiple places to be worked up. Evaluation in the ED showed the patient has metastatic lesions in bones and liver under ultrasound-guided biopsy recommended. I was consulted to admit this patient for observation and further workup. Review of Systems Review of Systems: All systems reviewed & are unremarkable except as noted in HPI and below PMFSH Past Medical History Medical History (Updated 04/30/23 @ 02:42 by Susanne Carney MD) CVA (cerebral vascular accident) Dementia Hypertension Neuropathy Right sided weakness Social History Social History Smoking status: Former smoker Alcohol intake: unknown Substance use: unknown Living arrangements: halfway Gender identity (if verbalized by the patient): Male Spiritual care concerns: No Meds Home Medications and Allergies Home Medications Medication Instructions Recorded Confirmed Type amlodipine 10 mg tablet 10 mg PO DAILY 08/05/20 03/14/23 History carvedilol 25 mg tablet 25 mg PO BID 08/05/20 04/30/23 History clonidine HCl 0.3 mg tablet 0.3 mg PO TID 08/05/20 04/30/23 History escitalopram oxalate 10 mg tablet 5 mg PO DAILY 08/05/20 03/14/23 History ferrous sulfate 325 mg (65 mg 325 mg PO DAILY 08/05/20 04/30/23 History iron) tablet folic acid 1 mg tablet 1 mg PO DAILY 08/05/20 03/14/23 History hydralazine 25 mg tablet 25 mg PO TID 08/05/20 03/14/23 History lisinopril 40 mg tablet 40 mg PO DAILY 08/05/20 03/14/23 History mecobalamin (vitamin B12) 1,000 1,000 mcg PO DAILY 08/05/20 04/30/23 History mcg chewable tablet multivitamin g-sdeqdfwn-cglewmz See Rx Instructions .Route .COMPLEX 08/05/20 03/14/23 History fumarate 18 mg-vitamin K 25 mcg tablet (Adults' Daily Formula) sennosides 8.6 mg-docusate sodium 1 tab-cap PO HS 08/05/20 04/30/23 History 50 mg tablet (Senexon-S) tamsulosin 0.4 mg capsule 0.4 mg PO DAILY 08/05/20 04/30/23 History thiamine HCl (vitamin B1) 100 mg 100 mg PO DAILY 08/05/20 04/30/23 History tablet albuterol 90 mcg/actuation aerosol See Rx Instructions .Route 03/14/23 03/14/23 History inhaler .COMPLEX PRN Shortness Of Breath trazodone 100 mg tablet 100 mg PO QHS 03/14/23 04/30/23 History duloxetine 30 mg capsule,delayed 30 mg PO QAM #30 caps 03/17/23 Rx release (Cymbalta) hydrocodone 5 mg-acetaminophen 325 1 tablet PO Q6H PRN Pain Rated 4-6 03/17/23 Rx mg tablet #12 tabs pantoprazole 40 mg tablet,delayed 40 mg PO Q12HR #60 tabs 03/17/23 Rx release potassium chloride 20 mEq 20 meq PO DAILY #14 tabs 03/17/23 Rx tablet,extended release pregabalin 50 mg capsule (Lyrica) 100 mg PO Q8HR #18 caps 03/17/23 04/30/23 Rx sodium chloride 1,000 mg soluble 1,000 mg PO BID #60 tabs 03/17/23 04/30/23 Rx tablet acetaminophen 500 mg tablet 500 mg PO TID 04/30/23 04/30/23 History polyethylene glycol 3350 17 gram 17 g PO DAILY 04/30/23 04/30/23 History oral powder packet (Miralax) Allergies Allergy/AdvReac Type Severity Reaction Status Date / Time No Known Allergies Allergy Verified 03/14/23 07:10 Vital Signs Vital Signs - 24 hr 04/29/23 19:27 04/29/23 19:35 04/29/23 19:45 Temperature 97.
[2023-04-30] MEDS: SODIUM CHLORIDE 0.9% IV 1,000 ML 125 ML IV CONT ×3 (02:51→22:24)
--- NOTE | 2023-04-30 02:52 | ADMGEN ---
This patient, Keenan Sen, was admitted to Medical Room 343-01. Patient/family oriented to hospital policies and general routines including ID bracelet, bed and alarms, visiting hours, pain management, procedures, bathroom and other care routines, personal items, smoking policy, room service/diet, and visiting hours. Information on how to activate the Rapid Response Team has been discussed. Patient/Family are encouraged to report perceived risks to care and to ask questions if they do not understand what they are told or what they should do.
[2023-04-30 05:51] LABS: Basophils Percent Auto 0.4 % (0.2-1.2); Eosinophils Percent Auto 1.2 % (0-4.4); Hematocrit 31.1 % (42.0-52.0); Hemoglobin 9.7 g/dL (14.0-18.0); Immature Granulocyte Absolute 0.13 K/mm3 (0.00-0.031); Immature Granulocyte Percent A 1.3 % (0-0.5); Lymphocytes Percent Auto 10.1 % (18.3-44.2); Mean Corpuscular HGB Conc 31.2 g/dl (32-36); Mean Corpuscular Hemoglobin 31.2 pg (26-34); Mean Platelet Volume 10.5 fl (7.4-10.4); Monocytes Percent Auto 9.1 % (2.6-8.5); Neutrophils Percent Auto 77.9 % (45.5-73.1); Nucleated Red Blood Cells Absolute Auto 0.1 K/mm3 (0.0-0.012); Nucleated Red Blood Cells Perc 0.8 % (0.0-0.2); Platelet Count Result 341 k/mm3 (150-375); Red Blood Count 3.11 M/mm3 (4.6-6.20); Red Cell Distribution Width 15.2 % (11.5-14.5); White Blood Count 10.2 K/mm3 (4.5-10.0)
[2023-04-30 05:52] LABS: Eosinophils Absolute Auto 0.1 K/mm3 (0-0.3); Lymphocytes Absolute Auto 1.03 K/mm3 (0.9-3.2); Monocytes Absolute Auto 0.9 K/mm3 (0.1-0.6); Neutrophils Absolute Auto 7.9 K/mm3 (1.3-6.7)
[2023-04-30 06:03] LABS: Anion Gap 14 mmol/L (8-16); Blood Urea Nitrogen 13 mg/dL (9-20); Calcium 9.2 mg/dL (8.4-10.2); Carbon Dioxide 22 mmol/L (22-30); Chloride 109 mmol/L (98-107); Estimated CRCL calculation 101 ml/min; Estimated Glomerular Filt Rate > 60; Glucose 119 mg/dL (65-110); Potassium 3.5 mmol/L (3.4-5.0); Sodium 145 mmol/L (137-145)
[2023-04-30] MEDS: PREGABALIN (*CRX) 50 MG CAPSULE 100 MG PO ×3 (06:12→21:11)
[2023-04-30] MEDS: lisinopriL 20 MG TABLET 40 MG PO (08:38)
[2023-04-30] MEDS: amLODIPine BESYLATE 5 MG TABLET 10 MG PO (08:38)
[2023-04-30] MEDS: cloNIDine HCL 0.1 MG TABLET 0.3 MG PO ×3 (08:38→16:58)
[2023-04-30] MEDS: hydrALAZINE HCL 25 MG TABLET PO ×3 (08:38→16:58)
[2023-04-30] MEDS: CYANOCOBALAMIN 1,000 MCG TABLET 1000 MCG PO (08:38)
[2023-04-30] MEDS: THIAMINE HCL 100 MG TABLET PO (08:39)
[2023-04-30] MEDS: BACLOFEN 10 MG TABLET PO ×3 (08:39→16:58)
[2023-04-30] MEDS: TAMSULOSIN HCL 0.4 MG CAPSULE PO (08:39)
[2023-04-30] MEDS: PANTOPRAZOLE 40 MG TABLET PO ×2 (08:39→20:14)
[2023-04-30] MEDS: DULoxetine HCL 30 MG CAPSULE.DR PO (08:39)
[2023-04-30] MEDS: carvediloL 25 MG TABLET PO ×2 (08:39→20:14)
[2023-04-30 08:45] LABS: INR 1.4; Prothrombin Time 17.3 Seconds (11.1-14.7)
[2023-04-30 08:46] LABS: Partial Thromboplastin Time 35.7 SECONDS (22.3-36.8)
[2023-04-30] MEDS: polyethylene glycoL 3350 17 GM POWD.PACK PO (12:44)
[2023-04-30] MEDS: CHOLECALCIFEROL 1,000 UNITS TABLET 5000 UNITS PO (12:44)
--- NOTE | 2023-04-30 14:56 | PM.IMPN ---
Progress Note: A&P Assessment and Plan (1) Metastatic cancer: Code(s): C79.9 - Secondary malignant neoplasm of unspecified site Status: Acute (2) Multiple lesions of metastatic malignancy: Code(s): C79.9 - Secondary malignant neoplasm of unspecified site Status: Acute (3) Dementia: Qualifiers: Dementia type: unspecified type Dementia severity: severe Dementia behavioral or psychological symptom: with agitation Qualified Code(s): F03.C11 - Unspecified dementia, severe, with agitation Code(s): F03.90 - Unspecified dementia, unspecified severity, without behavioral disturbance, psychotic disturbance, mood disturbance, and anxiety Status: Acute Plan Metastatic Cancer -Lung, liver, bone -Liver biopsy 04/30/2023 -oncology consulted -pain control -Will speak to family about prognosis and possible hospice care CVA -right sided weakness at baseline -swallow evaluation before resuming diet -resumed home medications BPH -resume flomax -monitor for retention -May need wynn for comfort HTN -Stable -Resume home medications -BP per unit protocol Code status: DNR DVT prophylaxis: SCD's Stress ulcer prophylaxis: Protonix 40 daily PT/OT notes: PT/OT pending will order if patient able to participate Disposition: Patient admitted to the medical unit for further evaluation of metastatic cancer, oncology consulted for any recommendations spoke with Daughter who is POA about patient guarded prognosis and possible consult to hospice. -Patient's previous records reviewed on admission -ER notes reviewed in detail on admission -discussed all findings and current treatment plan with patient/Family/POA -Consultations reviewed for recommendations -Patient's disposition for safe discharge discussed with case management rn Dictation performed by [employer] direct speech recognition software, therefore buffing wheel former machine variants and typographical errors may occur. Time Spent With Patient Time with patient: 15 - 25 minutes Subjective Date/time seen: 04/30/23 14:56 Interval history: Patient is a 63-year-old male with history of CVA on right-sided hemiparesis, he is a poor historian due to chronic medical illness and pain, presented to emergency department for abdominal pain back pain and right lower extremity pain that has been chronic.? He stated the pain may have been going on for up to 3 years, more localized on the right groin, he continued to moan during my encounter.? He could not give me much details.? Review of patient records showed that patient was recently admitted for similar symptom with no significant finding except nodule on the lung.? He also told me that he has been to multiple places to be worked up.? Evaluation in the ED showed the patient has metastatic lesions in bones and liver under ultrasound-guided biopsy recommended.? I was consulted to admit this patient for observation and further workup. 04/30/2023: Patient alert to self but unable to follow commands, does report pain will adjust pain medicatioin. Liver biopsy performed today. Spoke with patient Daughter RAHUL about patient diagnosis will discuss hospice options. Oncology to see offer any further recommendations. Exam Narrative: Physical Exam: - GENERAL: Alert to self unable to respond appropriately. Acutely ill appearing and in pain - EYES: EOMI. No scleral icterus. PERRLA. - HENT: Moist mucous membranes. No cervical lymphadenopathy. - LUNGS: Clear to auscultation bilaterally. No accessory muscle use. - CARDIOVASCULAR: Regular rate and rhythm. No murmur. No JVD. S1-S2 - ABDOMEN: Soft, tender mild distention Palpable liver edges. - EXTREMITIES: No edema. Non-tender -SKIN: No rashes or lesions. Skin warm, dry. - NEUROLOGIC: No focal neurological deficits. CN II-XII grossly intact - PSYCHIATRIC: Appropriate mood and affect. Good judgement and insight. No visual or auditory hallucinations. No
[2023-04-30] MEDS: SENNA/DOCUSATE SODIUM TABLET 1 TAB PO (20:14)
[2023-04-30] MEDS: traZODone HCL 50 MG TABLET 100 MG PO (20:14)
[2023-05-01] VITALS (7 sets, daily range): BP systolic 102–162; BP diastolic 64–79; PULSE 77–95; RESP 16–20; TEMP 36.2–37.1; O2SAT 90–100
[2023-05-01] MEDS: MORPHINE SULFATE (*CRX) 4 MG/ML INJ IV PUSH ×5 (01:02→16:15)
[2023-05-01] MEDS: SODIUM CHLORIDE 0.9% IV 1,000 ML 125 ML IV CONT ×3 (05:43→22:38)
[2023-05-01] MEDS: PREGABALIN (*CRX) 50 MG CAPSULE 100 MG PO ×2 (05:43→21:03)
[2023-05-01 08:17] LABS: Basophils Percent Auto 0.3 % (0.2-1.2); Eosinophils Absolute Auto 0.1 K/mm3 (0-0.3); Eosinophils Percent Auto 0.7 % (0-4.4); Hematocrit 29.8 % (42.0-52.0); Hemoglobin 9.3 g/dL (14.0-18.0); Immature Granulocyte Absolute 0.13 K/mm3 (0.00-0.031); Immature Granulocyte Percent A 1.2 % (0-0.5); Lymphocytes Absolute Auto 1.23 K/mm3 (0.9-3.2); Lymphocytes Percent Auto 11.5 % (18.3-44.2); Mean Corpuscular HGB Conc 31.2 g/dl (32-36); Mean Corpuscular Hemoglobin 31.6 pg (26-34); Mean Corpuscular Volume 101.4 fl (80-100); Mean Platelet Volume 10.5 fl (7.4-10.4); Monocytes Percent Auto 9.7 % (2.6-8.5); Neutrophils Absolute Auto 8.2 K/mm3 (1.3-6.7); Neutrophils Percent Auto 76.6 % (45.5-73.1); Nucleated Red Blood Cells Absolute Auto 0.3 K/mm3 (0.0-0.012); Nucleated Red Blood Cells Perc 2.6 % (0.0-0.2); Platelet Count Result 336 k/mm3 (150-375); Red Blood Count 2.94 M/mm3 (4.6-6.20); Red Cell Distribution Width 15.6 % (11.5-14.5); White Blood Count 10.7 K/mm3 (4.5-10.0)
[2023-05-01 08:26] LABS: Alanine Aminotransferase 29 U/L (6-50); Albumin Level 3.2 g/dL (3.5-5.1); Alkaline Phosphatase 118 U/L (38-126); Anion Gap 11 mmol/L (8-16); Aspartate Amino Transferase 57 U/L (17-59); Bilirubin,Total 0.8 mg/dL (0.2-1.3); Blood Urea Nitrogen 13 mg/dL (9-20); Calcium 8.4 mg/dL (8.4-10.2); Carbon Dioxide 21 mmol/L (22-30); Chloride 112 mmol/L (98-107); Estimated CRCL calculation 101 ml/min; Estimated Glomerular Filt Rate > 60; Glucose 118 mg/dL (65-110); Potassium 3.9 mmol/L (3.4-5.0); Sodium 144 mmol/L (137-145)
[2023-05-01] MEDS: TAMSULOSIN HCL 0.4 MG CAPSULE PO (09:29)
[2023-05-01] MEDS: hydrALAZINE HCL 25 MG TABLET PO ×3 (09:30→16:18)
[2023-05-01] MEDS: cloNIDine HCL 0.1 MG TABLET 0.3 MG PO ×3 (09:30→16:18)
[2023-05-01] MEDS: PANTOPRAZOLE 40 MG TABLET PO ×2 (09:30→20:13)
[2023-05-01] MEDS: CYANOCOBALAMIN 1,000 MCG TABLET 1000 MCG PO (09:30)
[2023-05-01] MEDS: amLODIPine BESYLATE 5 MG TABLET 10 MG PO (09:30)
[2023-05-01] MEDS: BACLOFEN 10 MG TABLET PO ×3 (09:30→16:19)
[2023-05-01] MEDS: DULoxetine HCL 30 MG CAPSULE.DR PO (09:30)
[2023-05-01] MEDS: THIAMINE HCL 100 MG TABLET PO (09:30)
[2023-05-01] MEDS: lisinopriL 20 MG TABLET 40 MG PO (09:30)
[2023-05-01] MEDS: carvediloL 25 MG TABLET PO ×2 (09:30→20:17)
[2023-05-01] MEDS: CHOLECALCIFEROL 1,000 UNITS TABLET 5000 UNITS PO (09:31)
[2023-05-01] MEDS: polyethylene glycoL 3350 17 GM POWD.PACK PO (09:32)
--- NOTE | 2023-05-01 10:04 | PDONCCN ---
HPI - Date of Consult Date/Time: 05/01/23 16:39 <Leo Palcaios - 05/01/23 16:41> 05/01/23 10:04 <Julia Hadley - 05/01/23 10:07> Requesting Physician: Susanne Carney MD <Leo Palacios - 05/01/23 16:41> Susanne Carney MD <Julia Hadley - 05/01/23 10:07> Primary Care Provider: UNKNOWN,DOCTOR <Leo Palacios - 05/01/23 16:41> UNKNOWN,DOCTOR <Julia Hadley 05/01/23 10:07> - Consult Narrative Reason for consult: Metastatic Cancer <Julia Hadley 05/01/23 10:07> Narrative: Keenan Sen is a 63 year old male <Leo Palacios 05/01/23 16:41> Keenan Sen is a 63 year old male with a past medical history of HTN, BPH, CVA, memory loss, and R sided paralysis and lives at [facility]. His daughter, Kathleen, who is POA and present, states she has seen him get progressively worse over the last 6 months and attributed it to his past stroke. He has complained a lot of back pain and being sweaty. She has noticed him losing weight and appetite. He has a past history of smoking for many years until his stroke in 2019. He was also an alcohol user and would drink excessive beers daily. Today, he is unable to provide me with any information except for his name. He keeps states Ma'am, I do not feel well. Please help me. <Julia Hadley - 05/01/23 10:32> Review of Systems - Review of Systems unobtainable due to mental status <Julia Hadley 05/01/23 10:32> [facility] Medical History: Medical History (Last Updated 03/17/23 @ 12:30 by Matti Patel MD) CVA (cerebral vascular accident) Dementia Hypertension Neuropathy Right sided weakness <Leo Palacios 05/01/23 16:41> Medical History (Last Updated 03/17/23 @ 12:30 by Matti Patel MD) CVA (cerebral vascular accident) Dementia Hypertension Neuropathy Right sided weakness <Haider Hadleyne - 05/01/23 10:07> - Social History Social History: Social History (Last Reviewed 03/16/23 @ 14:37 by Christiano Latham MD) Gender Identity: Gender identity (if verbalized by the patient): Male Alcohol Use: Alcohol intake: unknown Substance Use: Substance use: unknown Others: Spiritual care concerns: No Living Arrangements: Living arrangements: half-way Smoking Status: Smoking status: Former smoker <Leo PalaciosDominick - 05/01/23 16:41> Social History (Last Reviewed 03/16/23 @ 14:37 by Christiano Latham MD) Gender Identity: Gender identity (if verbalized by the patient): Male Alcohol Use: Alcohol intake: unknown Substance Use: Substance use: unknown Others: Spiritual care concerns: No Living Arrangements: Living arrangements: half-way Smoking Status: Smoking status: Former smoker <Haider Hadleyne - 05/01/23 10:07> Exam - Vital Signs Vital Signs - 24 hr 04/30/23 20:14 04/30/23 22:04 05/01/23 06:00 Temperature 36.4 C 36.2 C L Pulse Rate 88 88 91 Respiratory Rate 16 16 Blood Pressure 127/70 118/72 Pulse Oximetry 93 93 Oxygen Delivery Oxygen Flow Rate 05/01/23 07:57 05/01/23 09:30 05/01/23 09:27 Temperature Pulse Rate 95 Respiratory Rate Blood Pressure Pulse Oximetry 93 93 Oxygen Delivery Nasal Cannula Nasal Cannula Oxygen Flow Rate 1 1.5 05/01/23 09:30 05/01/23 14:00 05/01/23 16:20 Temperature 37.1 C Pulse Rate 86 Respiratory Rate 20 Blood Pressure 162/73 H 134/67 144/79 H Pulse Oximetry 90 Oxygen Delivery Oxygen Flow Rate <PhilipLeo Meir - 05/01/23 16:41> Vital Signs - 24 hr 04/30/23 13:58 04/30/23 20:14 04/30/23 22:04 Temperature 37.2 C 36.4 C Pulse Rate 88 88 88 Respiratory Rate 18 16 Blood Pressure 118/65 127/70 Pulse Oximetry 92 93 Oxygen Delivery Oxygen Flow Rate 05/01/23 06:00 05/01/23 07:57 05/01/23 09:30 Temperature 36.2 C L Pulse Rate 91 95
--- NOTE | 2023-05-01 10:24 | PCSTNOTE ---
Cancel Bedside Swallow Evaluation order at hospitalist request due to patient going possible comfort/hospice care. MARY Newman, reported patient has been able to tolerate medicines in pudding and liquid medicines without signs of aspiration. No further ST at this time.
[2023-05-01 10:27] LABS: Iron 56 ug/dL (49-181)
[2023-05-01 10:36] LABS: Percent Iron Saturation 27 % (20-50)
--- NOTE | 2023-05-01 12:15 | PM.IMPN ---
Progress Note: A&P Assessment and Plan (1) Metastatic cancer: Code(s): C79.9 - Secondary malignant neoplasm of unspecified site Status: Acute (2) Multiple lesions of metastatic malignancy: Code(s): C79.9 - Secondary malignant neoplasm of unspecified site Status: Acute (3) Dementia: Qualifiers: Dementia type: unspecified type Dementia severity: severe Dementia behavioral or psychological symptom: with agitation Qualified Code(s): F03.C11 - Unspecified dementia, severe, with agitation Code(s): F03.90 - Unspecified dementia, unspecified severity, without behavioral disturbance, psychotic disturbance, mood disturbance, and anxiety Status: Acute Plan Metastatic Cancer -Lung, liver, bone -Liver biopsy 04/30/2023 pending -oncology consulted and following -pain control increased for comfort -Hospice consult placed -Chemotherapy and radiation offered pending biopsy results CVA -right sided weakness at baseline -resume mechanical soft diet due to missing teeth -resumed home medications BPH -resume flomax -monitor for retention -May need wynn for comfort HTN -Stable -Resume home medications -BP per unit protocol Code status: DNR DVT prophylaxis: SCD's Stress ulcer prophylaxis: Protonix 40 daily PT/OT notes: NA Disposition: Patient admitted to the medical unit for further evaluation of metastatic cancer, oncology consulted for any recommendations spoke with Daughter who is POA about patient guarded prognosis consult to hospice ordered, will likely return to SNF on hospice. -Patient's previous records reviewed on admission -ER notes reviewed in detail on admission -discussed all findings and current treatment plan with patient/Family/POA -Consultations reviewed for recommendations -Patient's disposition for safe discharge discussed with child welfare caseworker Dictation performed by [employer] direct speech recognition software, therefore marketing sales manager variants and typographical errors may occur. Time Spent With Patient Time with patient: 15 - 25 minutes Subjective Date/time seen: 05/01/23 12:15 Interval history: Patient is a 63-year-old male with history of CVA on right-sided hemiparesis, he is a poor historian due to chronic medical illness and pain, presented to emergency department for abdominal pain back pain and right lower extremity pain that has been chronic.? He stated the pain may have been going on for up to 3 years, more localized on the right groin, he continued to moan during my encounter.? He could not give me much details.? Review of patient records showed that patient was recently admitted for similar symptom with no significant finding except nodule on the lung.? He also told me that he has been to multiple places to be worked up.? Evaluation in the ED showed the patient has metastatic lesions in bones and liver under ultrasound-guided biopsy recommended.? I was consulted to admit this patient for observation and further workup. 04/30/2023: Patient alert to self but unable to follow commands, does report pain will adjust pain medicatioin. Liver biopsy performed today. Spoke with patient Daughter POA about patient diagnosis will discuss hospice options. Oncology to see offer any further recommendations. 05/01: Patient still with complaints of pain changed medication PO oxy scheduled. Daughter at bedside and oncology discussed options pending biopsy. Daughter just wants father comfortable and has requested consult for hospice referral. POA provided on information on chemotherapy and radiation option pending biopsy results. Review of Systems Review of Systems: ROS unobtainable: Yes unobtainable due to medical condition Exam Narrative: Physical Exam: - GENERAL: Alert to self unable to respond appropriately. Acutely ill appearing and in pain - EYES: EOMI. No scleral icterus. PERRLA. - HENT: Moist mucous membranes. No cerv
[2023-05-01] MEDS: oxyCODONE HCL (*CRX) 5 MG TAB IR PO ×3 (12:44→20:12)
[2023-05-01 14:53] LABS: Lactate Dehydrogenase 2333 U/L (120-246)
[2023-05-01 15:33] LABS: Folic Acid 17.4 ng/mL (2.76->20)
[2023-05-01] MEDS: traZODone HCL 50 MG TABLET 100 MG PO (20:14)
[2023-05-01] MEDS: SENNA/DOCUSATE SODIUM TABLET 1 TAB PO (20:17)
[2023-05-02 05:56] LABS: Basophils Percent Auto 0.3 % (0.2-1.2); Eosinophils Absolute Auto 0.2 K/mm3 (0-0.3); Eosinophils Percent Auto 1.6 % (0-4.4); Hemoglobin 9.1 g/dL (14.0-18.0); Immature Granulocyte Absolute 0.13 K/mm3 (0.00-0.031); Immature Granulocyte Percent A 1.3 % (0-0.5); Lymphocytes Absolute Auto 1.21 K/mm3 (0.9-3.2); Lymphocytes Percent Auto 11.9 % (18.3-44.2); Mean Corpuscular HGB Conc 30.3 g/dl (32-36); Mean Corpuscular Hemoglobin 31.5 pg (26-34); Mean Corpuscular Volume 103.8 fl (80-100); Mean Platelet Volume 10.7 fl (7.4-10.4); Monocytes Percent Auto 10.2 % (2.6-8.5); Neutrophils Absolute Auto 7.6 K/mm3 (1.3-6.7); Neutrophils Percent Auto 74.7 % (45.5-73.1); Nucleated Red Blood Cells Absolute Auto 0.3 K/mm3 (0.0-0.012); Nucleated Red Blood Cells Perc 3.2 % (0.0-0.2); Platelet Count Result 287 k/mm3 (150-375); Red Blood Count 2.89 M/mm3 (4.6-6.20); Red Cell Distribution Width 15.9 % (11.5-14.5); White Blood Count 10.2 K/mm3 (4.5-10.0)
[2023-05-02 06:00] VITALS: BP 149/75; PULSE 91; RESP 16; TEMP 36.5; O2SAT 93
[2023-05-02 06:09] LABS: Alanine Aminotransferase 28 U/L (6-50); Albumin Level 3.1 g/dL (3.5-5.1); Alkaline Phosphatase 114 U/L (38-126); Anion Gap 8 mmol/L (8-16); Aspartate Amino Transferase 62 U/L (17-59); Bilirubin,Total 0.8 mg/dL (0.2-1.3); Blood Urea Nitrogen 17 mg/dL (9-20); Calcium 8.4 mg/dL (8.4-10.2); Carbon Dioxide 21 mmol/L (22-30); Chloride 117 mmol/L (98-107); Estimated CRCL calculation 86 ml/min; Estimated Glomerular Filt Rate > 60; Glucose 117 mg/dL (65-110); Potassium 3.7 mmol/L (3.4-5.0); Sodium 146 mmol/L (137-145)
[2023-05-02] MEDS: oxyCODONE HCL (*CRX) 5 MG TAB IR PO ×2 (06:11→09:02)
[2023-05-02] MEDS: PREGABALIN (*CRX) 50 MG CAPSULE 100 MG PO (06:11)
[2023-05-02] MEDS: SODIUM CHLORIDE 0.9% IV 1,000 ML 125 ML IV CONT (06:14)
[2023-05-02 08:00] VITALS: O2SAT 92
[2023-05-02] MEDS: cloNIDine HCL 0.1 MG TABLET 0.3 MG PO (09:02)
[2023-05-02] MEDS: CYANOCOBALAMIN 1,000 MCG TABLET 1000 MCG PO (09:02)
[2023-05-02] MEDS: BACLOFEN 10 MG TABLET PO (09:02)
[2023-05-02] MEDS: DULoxetine HCL 30 MG CAPSULE.DR PO (09:02)
[2023-05-02] MEDS: TAMSULOSIN HCL 0.4 MG CAPSULE PO (09:02)
[2023-05-02] MEDS: amLODIPine BESYLATE 5 MG TABLET 10 MG PO (09:02)
[2023-05-02] MEDS: THIAMINE HCL 100 MG TABLET PO (09:02)
[2023-05-02] MEDS: hydrALAZINE HCL 25 MG TABLET PO (09:02)
[2023-05-02 09:03] VITALS: PULSE 96
[2023-05-02] MEDS: CHOLECALCIFEROL 1,000 UNITS TABLET 5000 UNITS PO (09:03)
[2023-05-02] MEDS: carvediloL 25 MG TABLET PO (09:03)
[2023-05-02] MEDS: PANTOPRAZOLE 40 MG TABLET PO (09:03)
[2023-05-02] MEDS: lisinopriL 20 MG TABLET 40 MG PO (09:03)
[2023-05-02] MEDS: MORPHINE SULFATE (*CRX) 4 MG/ML INJ IV PUSH (09:58)
[2023-05-02] MEDS: MORPHINE SULFATE INJ (*CRX) 50 MG in SODIUM CHLORIDE 0.9% IV 95 ML IV CONT (11:11)
--- NOTE | 2023-05-02 11:59 | PM.IMPN ---
Progress Note: A&P Assessment and Plan (1) Metastatic cancer: Code(s): C79.9 - Secondary malignant neoplasm of unspecified site Status: Acute (2) Multiple lesions of metastatic malignancy: Code(s): C79.9 - Secondary malignant neoplasm of unspecified site Status: Acute (3) Dementia: Qualifiers: Dementia type: unspecified type Dementia severity: severe Dementia behavioral or psychological symptom: with agitation Qualified Code(s): F03.C11 - Unspecified dementia, severe, with agitation Code(s): F03.90 - Unspecified dementia, unspecified severity, without behavioral disturbance, psychotic disturbance, mood disturbance, and anxiety Status: Acute Plan Metastatic Cancer -Lung, liver, bone -Liver biopsy 04/30/2023 pending -oncology consulted and following -pain control increased for comfort -Hospice consult placed -Patient placed on comfort measures -morphine gtt started -Hospice order set placed CVA -right sided weakness at baseline -resume mechanical soft diet due to missing teeth Code status: Comfort measures/Inpatient hospice consulted DVT prophylaxis: SCD's Stress ulcer prophylaxis: Protonix 40 daily PT/OT notes: NA Disposition: Patient placed on comfort measures consulted for inpatient hospice -Patient's previous records reviewed on admission -ER notes reviewed in detail on admission -discussed all findings and current treatment plan with patient/Family/POA -Consultations reviewed for recommendations -Patient's disposition for safe discharge discussed with case making machine operator Dictation performed by [employer] direct speech recognition software, therefore room service server variants and typographical errors may occur. Time Spent With Patient Time with patient: 15 - 25 minutes Subjective Date/time seen: 05/02/23 11:59 Interval history: Patient is a 63-year-old male with history of CVA on right-sided hemiparesis, he is a poor historian due to chronic medical illness and pain, presented to emergency department for abdominal pain back pain and right lower extremity pain that has been chronic.? He stated the pain may have been going on for up to 3 years, more localized on the right groin, he continued to moan during my encounter.? He could not give me much details.? Review of patient records showed that patient was recently admitted for similar symptom with no significant finding except nodule on the lung.? He also told me that he has been to multiple places to be worked up.? Evaluation in the ED showed the patient has metastatic lesions in bones and liver under ultrasound-guided biopsy recommended.? I was consulted to admit this patient for observation and further workup. 04/30/2023: Patient alert to self but unable to follow commands, does report pain will adjust pain medicatioin. Liver biopsy performed today. Spoke with patient Daughter POA about patient diagnosis will discuss hospice options. Oncology to see offer any further recommendations. 05/01: Patient still with complaints of pain changed medication PO oxy scheduled. Daughter at bedside and oncology discussed options pending biopsy. Daughter just wants father comfortable and has requested consult for hospice referral. POA provided on information on chemotherapy and radiation option pending biopsy results. 05/02: Patient in severe pain moaning in pain, spoke with daughter at bedside requesting inpatient hospice/comfort care initiated and patient started on morphine gtt, CC consulted for hospice. Review of Systems Review of Systems: All systems reviewed & are unremarkable except as noted in HPI and below ROS unobtainable: Yes unobtainable due to medical condition Exam Narrative: Physical Exam: - GENERAL: Alert to self unable to respond appropriately. Acutely ill appearing and in severe pain - EYES: EOMI. No scleral icterus. PERRLA. - HENT: Moist mucous membranes. No cervical lympha
[2023-05-02 12:23] VITALS: PULSE 0
--- NOTE | 2023-05-02 13:01 | PM.DDS ---
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 He stated the pain may have been going on for up to 3 years, more localized on the right groin, he continued to moan during my encounter.? He could not give me much details.? Review of patient records showed that patient was recently admitted for similar symptom with no significant finding except nodule on the lung.? He also told me that he has been to multiple places to be worked up.? Evaluation in the ED showed the patient has metastatic lesions in bones and liver under ultrasound-guided biopsy recommended.? I was consulted to admit this patient for observation and further workup. 04/30/2023:??Patient alert to self but unable to follow commands, does report pain will adjust pain medicatioin.? Liver biopsy performed today.? Spoke with patient Daughter POA about patient diagnosis will discuss hospice options.? Oncology to see offer any further recommendations. 05/01:??Patient still with complaints of pain changed medication PO oxy scheduled.? Daughter at bedside and oncology discussed options pending biopsy.? Daughter just wants father comfortable and has requested consult for hospice referral.? POA provided on information on chemotherapy and radiation option pending biopsy results.? 05/02:??Patient in severe pain moaning in pain, spoke with daughter at bedside requesting inpatient hospice/comfort care initiated and patient started on morphine gtt, CC consulted for hospice. Patient was being seen by hospice time of 1223 pronounced by family coach at bedside. Additional Data Family: at bedside Name of Provider Notified: Caprice Seals APRN Time Provider Notified: 12:28 Was code activated?: No Provider Requests Autopsy: No Family Requests Autopsy: No Cost Accounting Analyst Notified: Yes Advance directives: No Hospice patient?: No (Was signing hospice papers when he passed)
[2023-05-05 22:10] LABS: Methylmalonic Acid 64 nmol/L (87-318)
[2023-05-09 15:47] LABS: Soluble Transferrin Receptor 2.58 mg/L (0.76-1.76)
== END 2023-05-02 12:23 | disposition expired | DRG 181 ==
LOC: ANHED 04-30 01:41 → ANH3MED 04-30 02:01
PROVIDERS: Nurse Practitioner Family; Radiology Diagnostic Radiology; Admitting Provider Student in an Organized Health Care Education/Training Program; Emergency Provider Emergency Medicine; Visit Provider Nurse Practitioner Family
DX: C34.90 Malignant neoplasm of unspecified part of unspecified bronchus or lung (principal); C78.7 Secondary malignant neoplasm of liver and intrahepatic bile duct; C79.51 Secondary malignant neoplasm of bone; I69.351 Hemiplegia and hemiparesis following cerebral infarction affecting right dominant side; E44.0 Moderate protein-calorie malnutrition; Z68.1 Body mass index [BMI] 19.9 or less, adult; D63.0 Anemia in neoplastic disease; F03.90 Unspecified dementia, unspecified severity, without behavioral disturbance, psychotic disturbance, mood disturbance, and anxiety; I10 Essential (primary) hypertension; G62.9 Polyneuropathy, unspecified; N40.0 Benign prostatic hyperplasia without lower urinary tract symptoms; Z66 Do not resuscitate; Z87.891 Personal history of nicotine dependence
CPT/HCPCS: 36415; 47000; 71045; 72132; 73502; 74177; 76942; 80048; 80053; 81001; 82607; 82728; 82746; 83540; 83550; 83605; 83615; 83921; 84238; 85025; 85610; 85730; 88307; 88342; 96374; 96376; 99285; A9270; G0378; J2270; J7030; Q9967